=== PATIENT | female | born 1935 | race Caucasian/White ===

== ENCOUNTER 2019-07-20 17:30 | Emergency (ER) | payer MEDICARE, OTHER ==
[2019-07-20 17:46] VITALS: BP 170/96; PULSE 79
[2019-07-20] MEDS ORDERED: Sodium Chloride 0.9% 10 ML Syringe FLUSH PRN ×2 (19:42→19:56)
--- NOTE | 2019-07-20 19:42 | EDM.PDOC ---
ED HPI GENERAL MEDICAL PROBLEM - General Chief Complaint: Lower Extremity Injury/Pain Stated Complaint: R LEG POSS BLOOD CLOT Time Seen by Provider: 07/20/19 18:46 Source of Information: Reports: Patient History Limitations: Reports: No Limitations - History of Present Illness INITIAL COMMENTS - FREE TEXT/NARRATIVE: The patient presents with right leg pain. She was seen over at the clinic and she had labs done and her D-dimer was elevated. She was told to come over and have an US done. She has a tender area with a lump to the right posterior, proximal thigh. She was on a long car ride last Friday. She has no history of DVT or PE. She did have some chest pain at one time. She has no fever, chills , cough, congestion, runny nose, abdominal pain, nausea or vomiting. Onset: Gradual Duration: Day(s): Location: Reports: Lower Extremity, Right Quality: Reports: Ache Severity: Mild Improves with: Reports: None Worsens with: Reports: None Associated Symptoms: Reports: Chest Pain. Denies: Cough, Fever/Chills, Headaches, Nausea/Vomiting, Shortness of Breath Right Upper Thigh Pain Score (Numeric/FACES): 6 - Related Data Allergies Allergy/AdvReac Type Severity Reaction Status Date / Time codeine Allergy Severe Airway Verified 07/20/19 17:46 Tightness morphine Allergy Intermediate Hives Verified 07/20/19 17:46 ranitidine AdvReac Tachycardia Verified 07/20/19 17:46 Home Meds: Home Meds Aspirin 81 mg PO BID 11/11/15 [History] Calcium Carbonate [Calcium] 1,200 mg PO DAILY 07/20/19 [History] Cyanocobalamin (Vitamin B-12) [B-12] 1,000 mcg PO ASDIRECTED 07/20/19 [History] Losartan [Cozaar] 100 mg PO DAILY 07/20/19 [History] Magnesium 250 mg PO DAILY 07/20/19 [History] Pantoprazole [ProTONIX] 40 mg PO DAILY 07/20/19 [History] Potassium 99 mg PO DAILY 07/20/19 [History] Rosuvastatin [Crestor] 2.5 mg PO ASDIRECTED 07/20/19 [History] Ubidecarenone [Coenzyme Q10] 100 mg PO BID 07/20/19 [History] hydroCHLOROthiazide [Hydrochlorothiazide] 12.5 mg PO DAILY 07/20/19 [History] rOPINIRole [Requip] 1 mg PO QPM 07/20/19 [History] Past Medical History Respiratory History: Reports: Bronchitis, Recurrent, Pneumonia, Recurrent Musculoskeletal History: Reports: Arthritis, Back Pain, Chronic Psychiatric History: Reports: Anxiety Oncologic (Cancer) History: Reports: Breast Other Oncologic History: right mastectomy 5 yrs ago - Infectious Disease History Infectious Disease History: Reports: Measles - Past Surgical History Female Surgical History: Reports: Hysterectomy Musculoskeletal Surgical History: Reports: Arthroscopic Knee, Knee Replacement Social & Family History - Tobacco Use Smoking Status *Q: Never Smoker - Recreational Drug Use Recreational Drug Use: No - Living Situation & Occupation Living situation: Reports: , with Spouse Occupation: Retired Review of Systems - Review of Systems Review Of Systems: See Below Constitutional: Reports: No Symptoms Eyes: Reports: No Symptoms Ears: Reports: No Symptoms Nose: Reports: No Symptoms Mouth/Throat: Reports: No Symptoms Respiratory: Reports: No Symptoms Cardiovascular: Reports: Chest Pain GI/Abdominal: Reports: No Symptoms Genitourinary: Reports: No Symptoms Musculoskeletal: Reports: Other (Right leg pain) ED EXAM, GENERAL - Physical Exam Exam: See Below Exam Limited By: No Limitations General Appearance: Alert, No Apparent Distress Ears: Normal External Exam Nose: Normal Inspection Head: Atraumatic, Normocephalic Neck: Normal Inspection Respiratory/Chest: No Respiratory Distress, Lungs Clear, Normal Breath Sounds Cardiovascular: Regular Rate, Rhythm, No Edema, No Murmur GI/Abdominal: Soft, Non-Tender, No Organomegaly, No Mass Back Exam: Normal Inspection Extremities: Normal Inspection Course - Vital Signs Last Recorded V/S: Last Vital Signs Temp 98.1 F 07/20/19 17:43 Pulse 79 07/20/19 17:43 Resp 16 07/20/19 17:43 BP 170/96 H 07/20/19 17:43 Pulse Ox 98 07/20/19 17:43 - Orders/Labs/Meds Orders: Active Orders 24 hr Category Date Time Status Peripheral IV Care [RC] . DIRECTED Care 07/20/19 19:42 Inactive Ang Chest [CT] Stat Exams 07/20/19 19:42 Stop Req VL Duplex Lwr Ext Veins Ltd Rt [US] Stat Exams 07/20/19 18:53 Taken Sodium Chloride 0.9% [Normal Saline] 100 ml Med 07/20/19 20:00 Active IV ASDIRECTED Sodium Chloride 0.9% [Saline Flush] Med 07/20/19 19:56 Active 10 ml FLUSH ONETIME PRN Medication Orders Sodium Chloride (Normal Saline) 100 mls @ 80 mls/hr IV ASDIRECTED SHAN Sodium Chloride (Saline Flush) 10 ml FLUSH ONETIME PRN PRN Reason: KEEP VEIN OPEN Meds: Medications Generic Name Dose Route Start Last Admin Trade Name Freq PRN Reason Stop Dose Admin Sodium Chloride 100 mls @ 80 mls/hr 07/20/19 20:00 Normal Saline IV ASDIRECTED SHAN Sodium Chloride 10 ml 07/20/19 19:56 Saline Flush FLUSH ONETIME PRN KEEP VEIN OPEN Discontinued Medications Generic Name Dose Route Start Last Admin Trade Name Freq PRN Reason Stop Dose Admin Iopamidol 100 ml 07/20/19 19:56 [id number] (76%) IVPUSH 07/20/19 19:57 ONETIME ONE Sodium Chloride 10 ml 07/20/19 19:42 Saline Flush FLUSH ASDIRECTED PRN Keep Vein Open - Re-Assessments/Exams Free Text/Narrative Re-Assessment/Exam: 07/20/19 20:49 The US did show a superficial thrombophlebitis. I will keep her on the aspirin and have her wear compression stockings. She just had an MRI with contrast today. That may be to much contrast for her kidneys. I have put in an order for Chest angio for Friday. I will have her return if she is worse. Departure - Departure Time of Disposition: 20:50 Disposition: Home, Self-Care 01 Condition: Good Clinical Impression: Superficial thrombophlebitis of right leg - Discharge Information *PRESCRIPTION DRUG MONITORING PROGRAM REVIEWED*: No *COPY OF PRESCRIPTION DRUG MONITORING REPORT IN PATIENT TIBURCIO: No Referrals: Radha Alva NEW AUTOS DELIVERY DRIVER [Primary Care Provider] - 1 Week Forms: ED Department Discharge Additional Instructions: Keep taking your medication as prescribed including your daily aspirin. Wear compression stockings on both legs for at least a week. I have put an order in for a CT of your chest. Someone from our radiology department will call you with a time. Please return if you are worse. - My Orders Last 24 Hours: My Active Orders 07/20/19 18:53 VL Duplex Lwr Ext Veins Ltd Rt [US] Stat 07/20/19 19:42 Peripheral IV Care [RC] . DIRECTED Ang Chest [CT] Stat 07/20/19 19:56 Sodium Chloride 0.9% [Saline Flush] 10 ml FLUSH ONETIME PRN 07/20/19 20:00 Sodium Chloride 0.9% [Normal Saline] 100 ml IV ASDIRECTED - Assessment/Plan Last 24 Hours: My Active Orders 07/20/19 18:53 VL Duplex Lwr Ext Veins Ltd Rt [US] Stat 07/20/19 19:42 Peripheral IV Care [RC] . DIRECTED Ang Chest [CT] Stat 07/20/19 19:56 Sodium Chloride 0.9% [Saline Flush] 10 ml FLUSH ONETIME PRN 07/20/19 20:00 Sodium Chloride 0.9% [Normal Saline] 100 ml IV ASDIRECTED
[2019-07-20] MEDS ORDERED: Iopamidol 755 Mg/ML 100 ML Bottle IVPUSH ONE (19:56)
[2019-07-20] MEDS ORDERED: Sodium Chloride 0.9% 100 ML IV SCH (20:00)
--- NOTE | 2019-07-20 21:09 | US ---
Right lower extremity deep venous ultrasound: Duplex and color flow imaging was obtained of the right common femoral, greater saphenous, superficial femoral, popliteal, posterior tibial peroneal veins. Left common femoral vein was also evaluated. Findings: Small superficial vein within the posterior right thigh shows evidence of thrombus compatible with superficial thrombophlebitis. Normal phasic flow, augmentation and compression is seen within the deep veins. Impression: 1. No evidence of deep venous thrombosis within the right lower extremity or within the left common femoral vein. 2. Superficial varicosity within the posterior right thigh shows thrombus compatible with superficial thrombophlebitis. Diagnostic code #3
== END 2019-07-20 21:07 | disposition home or self-care (01) ==
LOC: JD.ED 17:30
DX: I80.01 Phlebitis and thrombophlebitis of superficial vessels of right lower extremity (principal); F41.9 Anxiety disorder, unspecified; Z88.5 Allergy status to narcotic agent; Z88.8 Allergy status to other drugs, medicaments and biological substances; Z79.82 Long term (current) use of aspirin; Z79.899 Other long term (current) drug therapy; Z85.3 Personal history of malignant neoplasm of breast
CPT/HCPCS: 93971-26-RT; 93971-RT; 99283; 99284-25

== ENCOUNTER 2019-10-17 00:21 | Emergency (ER) | payer MEDICARE, OTHER ==
[2019-10-17 00:34] VITALS: BP 168/92; PULSE 74
--- NOTE | 2019-10-17 01:11 | EDM.PDOC ---
ED HPI GENERAL MEDICAL PROBLEM - General Chief Complaint: General Stated Complaint: UTI Time Seen by Provider: 10/17/19 01:11 - History of Present Illness INITIAL COMMENTS - FREE TEXT/NARRATIVE: 84-year-old female presents emergency room with several symptoms. Patient is nauseated shaky and just doesn't feel good. She thought it was due to the Bactrim she was taking and stopped couple days ago. She took 13 and 14 for a bladder infection. She is no longer having bladder symptoms. No she's having some stomach upset and some shakiness. Denies fevers or chills she has little bit of cough but not too bad. Denies chest pressure. She also has leg cramps but this is an ongoing problem. Her symptoms started about 7 or 8 hours ago Generalized Pain Score (Numeric/FACES): 8 - Related Data Allergies Allergy/AdvReac Type Severity Reaction Status Date / Time codeine Allergy Severe Airway Verified 10/17/19 00:35 Tightness morphine Allergy Intermediate Hives Verified 10/17/19 00:35 ranitidine AdvReac Tachycardia Verified 10/17/19 00:35 Home Meds: Home Meds Aspirin 81 mg PO BID 11/11/15 [History] Calcium Carbonate [Calcium] 1,200 mg PO DAILY 07/20/19 [History] Cyanocobalamin (Vitamin B-12) [B-12] 1,000 mcg PO ASDIRECTED 07/20/19 [History] Losartan [Cozaar] 100 mg PO DAILY 07/20/19 [History] Magnesium 250 mg PO DAILY 07/20/19 [History] Pantoprazole [ProTONIX] 40 mg PO DAILY 07/20/19 [History] Potassium 99 mg PO DAILY 07/20/19 [History] Rosuvastatin [Crestor] 2.5 mg PO ASDIRECTED 07/20/19 [History] Ubidecarenone [Coenzyme Q10] 100 mg PO BID 07/20/19 [History] hydroCHLOROthiazide [Hydrochlorothiazide] 12.5 mg PO DAILY 07/20/19 [History] rOPINIRole [Requip] 1 mg PO QPM 07/20/19 [History] LORazepam [Ativan] 0.25 mg PO Q8H PRN 10/17/19 [History] LORazepam [Ativan] 0.5 mg PO Q8H PRN #6 tablet 10/17/19 [Rx] Potassium Chloride [Klor-Con M20] 20 meq PO Q12H #6 tab.er 10/17/19 [Rx] traMADol [Ultram] 100 mg PO TID 10/17/19 [History] Past Medical History Cardiovascular History: Reports: High Cholesterol, Hypertension Respiratory History: Reports: Bronchitis, Recurrent, Pneumonia, Recurrent Gastrointestinal History: Reports: [employer] History: Reports: Musculoskeletal History: Reports: Arthritis, Back Pain, Chronic Psychiatric History: Reports: Anxiety Oncologic (Cancer) History: Reports: Breast Other Oncologic History: right mastectomy 5 yrs ago - Infectious Disease History Infectious Disease History: Reports: Measles - Past Surgical History Female Surgical History: Reports: Hysterectomy Musculoskeletal Surgical History: Reports: Arthroscopic Knee, Knee Replacement Social & Family History - Tobacco Use Smoking Status *Q: Never Smoker Second Hand Smoke Exposure: No - Caffeine Use Caffeine Use: Reports: Coffee - Recreational Drug Use Recreational Drug Use: No - Living Situation & Occupation Living situation: Reports: , with Spouse Occupation: Retired ED ROS GENERAL - Review of Systems Review Of Systems: See Below Constitutional: Reports: No Symptoms HEENT: Reports: No Symptoms Respiratory: Reports: No Symptoms Cardiovascular: Reports: No Symptoms GI/Abdominal: Reports: Nausea. Denies: Abdominal Pain, Constipation, Diarrhea : Denies: Dysuria, Flank Pain, Frequency, Hematuria Musculoskeletal: Reports: Other (Leg cramps) Skin: Reports: No Symptoms ED EXAM, GENERAL - Physical Exam Exam: See Below Exam Limited By: No Limitations General Appearance: Alert, No Apparent Distress Head: Atraumatic, Normocephalic Neck: Normal Inspection, Supple, Non-Tender, Full Range of Motion Respiratory/Chest: No Respiratory Distress, Lungs Clear, Normal Breath Sounds Cardiovascular: Regular Rate, Rhythm, No Edema, No Murmur GI/Abdominal: Normal Bowel Sounds, Soft, Non-Tender Course - Vital Signs Last Recorded V/S: Last Vital Signs Temp 35.7 C 10/17/19 00:34 Pulse 74 10/17/19 00:34 Resp 20 10/17/19 00:34 BP 168/92 H 10/17/19 00:34 Pulse Ox 98 10/17/19 00:34 - Orders/Labs/Meds Labs: Laboratory Tests 10/17/19 10/17/19 Range/Units 01:30 01:30 WBC 8.49 (3.98-10.04) K/mm3 RBC 4.25 (3.98-5.22) M/mm3 Hgb 13.2 (11.2-15.7) gm/dl Hct 38.8 (34.1-44.9) % MCV 91.3 (79.4-94.8) fl MCH 31.1 (25.6-32.2) pg MCHC 34.0 (32.2-35.5) g/dl RDW Std Deviation 39.2 (36.4-46.3) fL Plt Count 212 (182-369) K/mm3 MPV 9.0 L (9.4-12.3) fl Neutrophils % (Manual) 51 (40-60) % Band Neutrophils % 0 (0-10) % Lymphocytes % (Manual) 39 (20-40) % Atypical Lymphs % 0 % Monocytes % (Manual) 9 (2-10) % Eosinophils % (Manual) 1 (0.7-5.8) % Basophils % (Manual) 0 L (0.1-1.2) Platelet Estimate Adequate Plt Morphology Comment Normal RBC Morph Comment Normal Sodium 132 L (136-145) mEq/L Potassium 3.9 (3.5-5.1) mEq/L Chloride 99 (98-107) mEq/L Carbon Dioxide 27 (21-32) mEq/L Anion Gap 9.9 (5-15) BUN 30 H (7-18) mg/dL Creatinine 1.0 (0.55-1.02) mg/dL Est Cr Clr Drug Dosing TNP Estimated GFR (MDRD) 53 (>60) mL/min BUN/Creatinine Ratio 30.0 H (14-18) Glucose 111 (83-115) mg/dL Calcium 9.0 (8.5-10.1) mg/dL Magnesium 1.9 (1.8-2.4) mg/dl Total Bilirubin 0.3 (0.2-1.0) mg/dL AST 32 (15-37) U/L ALT 39 (14-59) U/L Alkaline Phosphatase 122 H (46-116) U/L Troponin I < 0.017 (0.00-0.056) ng/mL Total Protein 6.4 (6.4-8.2) g/dl Albumin 3.7 (3.4-5.0) g/dl Globulin 2.7 gm/dL Albumin/Globulin Ratio 1.4 (1-2) Meds: Medications Discontinued Medications Generic Name Dose Route Start Last Admin Trade Name Jonathan PRN Reason Stop Dose Admin Lorazepam 0.5 mg 10/17/19 01:58 10/17/19 02:36 Ativan PO 10/17/19 01:59 0.5 mg ONETIME ONE Administration Ondansetron HCl 4 mg 10/17/19 01:18 10/17/19 01:34 Zofran Odt PO 10/17/19 01:19 4 mg ONETIME ONE Administration Potassium Chloride 40 meq 10/17/19 03:56 Klor-Con M20 PO 10/17/19 03:57 ONETIME ONE - Re-Assessments/Exams Free Text/Narrative Re-Assessment/Exam: 10/17/19 01:25 Think a lot of her problems are anxiety however she declines a dose of Ativan at this time. We will check an EKG and some labs make sure electrolytes are okay not contributing to her leg tightness but it sounds like she's had a long history of restless leg. 10/17/19 04:00 He did agree to some Ativan is doing much better with this. Reviewed her labs and her potassium is low and her magnesium was borderline low we'll give her some oral potassium and recommend she start Mag-Ox 40 mg a day. Departure - Departure Time of Disposition: 04:01 Disposition: Home, Self-Care 01 Clinical Impression: Hypokalemia, Anxiety, Restless leg syndrome - Discharge Information Prescriptions: LORazepam [Ativan] 0.5 mg PO Q8H PRN #6 tablet PRN Reason: Anxiety Potassium Chloride [Klor-Con M20] 20 meq PO Q12H #6 tab.er Referrals: Radha Alva SENIOR SHIPPING CLERK [Primary Care Provider] - Forms: ED Department Discharge Additional Instructions: Return to the emergency room with any questions problems worsening symptoms. You 've been given some Ativan, use only as needed for anxiety. Your potassium was found to be low take the potassium as directed. If you're not already on a magnesium supplement start Mag-Ox 400 mg 1 daily Follow-up in the clinic on Friday or Friday Sepsis Event Note - Evaluation Sepsis Screening Result: No Definite Risk - Focused Exam Vital Signs: Vital Signs Temp Pulse Resp BP Pulse Ox 10/17/19 00:34 35.7 C 74 20 168/92 H 98 Date Exam was Performed: 10/17/19 Time Exam was Performed: 04:00
[2019-10-17] MEDS ORDERED: Ondansetron 4 MG Tab.DIS PO ONE (01:18)
[2019-10-17] MEDS ORDERED: LORazepam 0.5 MG Tab PO ONE (01:58)
[2019-10-17] MEDS ORDERED: Potassium Chloride 20 MEQ Tab.ER PO ONE (03:56)
== END 2019-10-17 04:29 | disposition home or self-care (01) ==
LOC: JD.ED 00:21
DX: E87.6 Hypokalemia (principal); F41.9 Anxiety disorder, unspecified; G25.81 Restless legs syndrome; I10 Essential (primary) hypertension; E78.00 Pure hypercholesterolemia, unspecified; K21.9 Gastro-esophageal reflux disease without esophagitis; M19.90 Unspecified osteoarthritis, unspecified site; Z79.899 Other long term (current) drug therapy; Z88.8 Allergy status to other drugs, medicaments and biological substances; Z88.5 Allergy status to narcotic agent; Z79.82 Long term (current) use of aspirin
CPT/HCPCS: 36415; 80053; 83735; 84484; 85007; 85027; 99283; A9270

== ENCOUNTER 2020-05-27 09:48 | Emergency (ER) | payer MEDICARE, OTHER ==
[2020-05-27 10:26] VITALS: BP 183/95; PULSE 81
--- NOTE | 2020-05-27 11:54 | EDM.PDOC ---
ED HPI GENERAL MEDICAL PROBLEM - General Chief Complaint: General Stated Complaint: RESTLESSNESS AND BODY ACHES Time Seen by Provider: 05/27/20 11:04 Source of Information: Reports: Patient History Limitations: Reports: No Limitations - History of Present Illness INITIAL COMMENTS - FREE TEXT/NARRATIVE: Patient is an 85-year-old female who presents to the emergency department with complaints of generalized joint pain, back pain, and right shoulder pain. She states this has been chronic for her for "many years ". She has been taking tramadol 100 mg 3 times daily as well as Tylenol 1000 mg twice daily. She also takes Requip 1 mg for restless legs at bedtime. She states that she hurt her right shoulder about 2 weeks ago. Since that time she feels that her generalized arthritic pain has gotten worse. She also has not been sleeping well since she injured her shoulder. She complains of low back pain radiating down her bilateral legs which has been chronic for her, however she states that it is worse. She had an MRI completed on Friday of her right shoulder. She has not received results of this thus far. She denies any recent injuries to her back. She denies any fever or chills. Generalized Pain Score (Numeric/FACES): 10 - Related Data Allergies Allergy/AdvReac Type Severity Reaction Status Date / Time codeine Allergy Severe Airway Verified 05/28/20 01:22 Tightness morphine Allergy Severe Hives Verified 05/28/20 01:22 ranitidine AdvReac Severe Tachycardia Verified 05/28/20 01:22 Home Meds: Home Meds Aspirin 81 mg PO BID 11/11/15 [History] Calcium Carbonate [Calcium] 1,200 mg PO DAILY 07/20/19 [History] Cyanocobalamin (Vitamin B-12) [B-12] 1,000 mcg PO ASDIRECTED 07/20/19 [History] Losartan [Cozaar] 100 mg PO DAILY 07/20/19 [History] Magnesium 250 mg PO DAILY 07/20/19 [History] Pantoprazole [ProTONIX] 40 mg PO DAILY 07/20/19 [History] Potassium 99 mg PO DAILY 07/20/19 [History] Rosuvastatin [Crestor] 2.5 mg PO ASDIRECTED 07/20/19 [History] Ubidecarenone [Coenzyme Q10] 100 mg PO BID 07/20/19 [History] hydroCHLOROthiazide [Hydrochlorothiazide] 12.5 mg PO DAILY 07/20/19 [History] rOPINIRole [Requip] 1 mg PO QPM 07/20/19 [History] LORazepam [Ativan] 0.5 mg PO Q8H PRN #6 tablet 10/17/19 [Rx] Potassium Chloride [Klor-Con M20] 20 meq PO Q12H #6 tab.er 10/17/19 [Rx] traMADol [Ultram] 100 mg PO TID 10/17/19 [History] predniSONE [Prednisone] 30 mg PO DAILY 5 Days #15 tablet 05/27/20 [Rx] Past Medical History Cardiovascular History: Reports: High Cholesterol, Hypertension Respiratory History: Reports: Bronchitis, Recurrent, Pneumonia, Recurrent Gastrointestinal History: Reports: [employer] History: Reports: Musculoskeletal History: Reports: Arthritis, Back Pain, Chronic Psychiatric History: Reports: Anxiety Oncologic (Cancer) History: Reports: Breast Other Oncologic History: right mastectomy 5 yrs ago - Infectious Disease History Infectious Disease History: Reports: Measles - Past Surgical History Female Surgical History: Reports: Hysterectomy Musculoskeletal Surgical History: Reports: Arthroscopic Knee, Knee Replacement Social & Family History - Tobacco Use Smoking Status *Q: Never Smoker Second Hand Smoke Exposure: No - Caffeine Use Caffeine Use: Reports: Coffee - Recreational Drug Use Recreational Drug Use: No - Living Situation & Occupation Living situation: Reports: , with Spouse Occupation: Retired ED ROS GENERAL - Review of Systems Review Of Systems: See Below Constitutional: Reports: No Symptoms HEENT: Reports: No Symptoms Respiratory: Reports: No Symptoms Cardiovascular: Reports: No Symptoms Endocrine: Reports: No Symptoms GI/Abdominal: Reports: No Symptoms : Reports: No Symptoms Musculoskeletal: Reports: Back Pain, Other (Right shoulder pain) Skin: Reports: No Symptoms Neurological: Reports: No Symptoms Psychiatric: Reports: No Symptoms Hematologic/Lymphatic: Reports: No Symptoms Immunologic: Reports: No Symptoms ED EXAM, GENERAL - Physical Exam Exam: See Below General Appearance: Alert, WD/WN, No Apparent Distress Respiratory/Chest: No Respiratory Distress, Lungs Clear, Normal Breath Sounds, No Accessory Muscle Use, Chest Non-Tender Cardiovascular: Normal Peripheral Pulses, Regular Rate, Rhythm, No Edema, No Gallop, No JVD, No Murmur, No Rub Back Exam: Normal Inspection, Paraspinal Tenderness (Bilateral low back) Extremities: Normal Inspection, Limited Range of Motion (To right shoulder due to pain.). No: Joint Swelling Neurological: Alert, Oriented, CN II-XII Intact, Normal Cognition, Normal Gait, Normal Reflexes, No Motor/Sensory Deficits Psychiatric: Normal Affect, Normal Mood Skin Exam: Warm, Dry, Intact, Normal Color, No Rash Course - Vital Signs Last Recorded V/S: Last Vital Signs Temp 97.1 F 05/27/20 10:20 Pulse 81 05/27/20 10:20 Resp 20 05/27/20 10:20 BP 183/95 H 05/27/20 10:20 Pulse Ox 97 05/27/20 10:20 - Re-Assessments/Exams Free Text/Narrative Re-Assessment/Exam: 05/27/20 11:52 Patient is an 85-year-old female who presents to the emergency department with complaints of worsening chronic pain. She is already taking tramadol 100 mg 3 times daily as well as Tylenol twice daily. I am hesitant to start her any narcotics due to her age and risk of confusion and her falling. Review of her shoulder MRI shows tendinitis, bursitis, and a possible labral tear. We will try a short course of prednisone to reduce inflammation in her shoulder and low back. Discussed that is imperative that she follow-up with her primary care provider next week for ongoing management and to come up with a long-term plan for pain management. We will do prednisone 30 mg daily for 5 days. Discharge instructions as documented. 06/02/20 12:59 Departure - Departure Time of Disposition: 11:53 Disposition: Home, Self-Care 01 Condition: Good Clinical Impression: Chronic back pain Qualifiers: Back pain location: low back pain Back pain laterality: bilateral Sciatica presence: with sciatica Sciatica laterality: bilateral sciatica Qualified Code(s): M54.42 - Lumbago with sciatica, left side Shoulder pain, right Qualifiers: Chronicity: acute Qualified Code(s): M25.511 - Pain in right shoulder - Discharge Information *PRESCRIPTION DRUG MONITORING PROGRAM REVIEWED*: No *COPY OF PRESCRIPTION DRUG MONITORING REPORT IN PATIENT TIBURCIO: No Prescriptions: predniSONE [Prednisone] 30 mg PO DAILY 5 Days #15 tablet Instructions: Shoulder Pain, Chronic Back Pain, [id number] Referrals: Radha Alva PHARMACY TECHNICIAN INPATIENT [Primary Care Provider] - Forms: ED Department Discharge Additional Instructions: You were seen in the emergency department today for worsening of your chronic back pain, leg pain, and right shoulder pain. As we discussed, I do not feel it would be beneficial for you to start an additional pain medication in addition to your tramadol and Tylenol. I have ordered a short course of prednisone which is an anti-inflammatory to help decrease the inflammation in your back and shoulder. Take this once daily for 5 days. Recommend that you follow-up with your primary care provider next week for ongoing and long-term management of your chronic pain. Return to the ER as needed. Sepsis Event Note (ED) - Evaluation Sepsis Screening Result: No Definite Risk
== END 2020-05-27 12:15 | disposition home or self-care (01) ==
LOC: JD.ED 09:48
DX: M54.41 Lumbago with sciatica, right side (principal); M54.42 Lumbago with sciatica, left side; M25.511 Pain in right shoulder; I10 Essential (primary) hypertension; K21.9 Gastro-esophageal reflux disease without esophagitis; M19.90 Unspecified osteoarthritis, unspecified site; Z90.710 Acquired absence of both cervix and uterus; Z79.899 Other long term (current) drug therapy; Z79.82 Long term (current) use of aspirin; Z88.5 Allergy status to narcotic agent; Z88.8 Allergy status to other drugs, medicaments and biological substances
CPT/HCPCS: 99282; 99283

== ENCOUNTER 2020-05-28 00:45 | Emergency (ER) | payer MEDICARE, OTHER ==
[2020-05-28 01:21] VITALS: BP 176/94; PULSE 80
[2020-05-28] MEDS ORDERED: Cyclobenzaprine 10 MG Tab PO ONE (02:06)
--- NOTE | 2020-05-28 02:12 | EDM.PDOC ---
ED HPI GENERAL MEDICAL PROBLEM - General Chief Complaint: Cardiovascular Problem Stated Complaint: HIGH BLOOD PRESSURE Time Seen by Provider: 05/28/20 01:53 Source of Information: Reports: Patient History Limitations: Reports: No Limitations - History of Present Illness INITIAL COMMENTS - FREE TEXT/NARRATIVE: Is an 85-year-old female. Today she was checking her blood pressure multiple times and noted that the diastolic pressure was 100 or above. She says normally her blood pressures are 180 over 70s. But today it got up to 200/100. She continued to check the blood pressures they did not seem to come down so she comes to the ER for evaluation. As she laid in the room the blood pressure came down to 155/77. When I go in the room of course the blood pressure goes back up slightly. She says that she has a problem with restless leg and everything they give her has not helped but she feels like her legs are cramping up at nighttime and she cannot get any sleep and she is restless and moves around all night. They have not given her a muscle relaxer to help. All concerned about her blood pressure and so she checks it multiple times during the day instead of leaving it alone. She does have chronic low back pain for which she is seeing an sap specialist this coming week at [facility]. Bilateral Leg Pain Score (Numeric/FACES): 8 - Related Data Allergies Allergy/AdvReac Type Severity Reaction Status Date / Time codeine Allergy Severe Airway Verified 05/28/20 01:22 Tightness morphine Allergy Severe Hives Verified 05/28/20 01:22 ranitidine AdvReac Severe Tachycardia Verified 05/28/20 01:22 Home Meds: Home Meds Aspirin 81 mg PO BID 11/11/15 [History] Calcium Carbonate [Calcium] 1,200 mg PO DAILY 07/20/19 [History] Cyanocobalamin (Vitamin B-12) [B-12] 1,000 mcg PO ASDIRECTED 07/20/19 [History] Losartan [Cozaar] 100 mg PO DAILY 07/20/19 [History] Magnesium 250 mg PO DAILY 07/20/19 [History] Pantoprazole [ProTONIX] 40 mg PO DAILY 07/20/19 [History] Potassium 99 mg PO DAILY 07/20/19 [History] Rosuvastatin [Crestor] 2.5 mg PO ASDIRECTED 07/20/19 [History] Ubidecarenone [Coenzyme Q10] 100 mg PO BID 07/20/19 [History] hydroCHLOROthiazide [Hydrochlorothiazide] 12.5 mg PO DAILY 07/20/19 [History] rOPINIRole [Requip] 1 mg PO QPM 07/20/19 [History] LORazepam [Ativan] 0.5 mg PO Q8H PRN #6 tablet 10/17/19 [Rx] Potassium Chloride [Klor-Con M20] 20 meq PO Q12H #6 tab.er 10/17/19 [Rx] traMADol [Ultram] 100 mg PO TID 10/17/19 [History] predniSONE [Prednisone] 30 mg PO DAILY 5 Days #15 tablet 05/27/20 [Rx] Past Medical History Cardiovascular History: Reports: High Cholesterol, Hypertension Respiratory History: Reports: Bronchitis, Recurrent, Pneumonia, Recurrent Gastrointestinal History: Reports: GERD 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: Musculoskeletal History: Reports: Arthritis, Back Pain, Chronic Psychiatric History: Reports: Anxiety Oncologic (Cancer) History: Reports: Breast Other Oncologic History: right mastectomy 5 yrs ago - Infectious Disease History Infectious Disease History: Reports: Measles - Past Surgical History Female Surgical History: Reports: Hysterectomy Musculoskeletal Surgical History: Reports: Arthroscopic Knee, Knee Replacement Social & Family History - Family History Family Medical History: Noncontributory - Tobacco Use Smoking Status *Q: Never Smoker Second Hand Smoke Exposure: No - Caffeine Use Caffeine Use: Reports: Coffee - Recreational Drug Use Recreational Drug Use: No - Living Situation & Occupation Living situation: Reports: , with Spouse Occupation: Retired ED ROS GENERAL - Review of Systems Review Of Systems: See Below Constitutional: Denies: Fever, Chills HEENT: Reports: No Symptoms Respiratory: Denies: Shortness of Breath, Cough Cardiovascular: Reports: No Symptoms Endocrine: Reports: No Symptoms GI/Abdominal: Reports: No Symptoms : Reports: No Symptoms Musculoskeletal: Reports: Back Pain Skin: Reports: No Symptoms Neurological: Reports: No Symptoms Psychiatric: Reports: No Symptoms ED EXAM, GENERAL - Physical Exam Exam: See Below Exam Limited By: No Limitations General Appearance: Alert, WD/WN, No Apparent Distress Eye Exam: Bilateral Eye: Normal Inspection Ears: Normal External Exam Throat/Mouth: Normal Voice, No Airway Compromise Head: Normocephalic Neck: Supple Respiratory/Chest: No Respiratory Distress, Lungs Clear, Normal Breath Sounds Cardiovascular: Regular Rate, Rhythm, No Murmur Back Exam: Other (Complains of lower back tenderness and pain that seems to get worse if she stays in one place for a period of time such as sitting.) Extremities: Normal Inspection, Normal Range of Motion Neurological: Alert, Oriented Psychiatric: Anxious Skin Exam: Warm, Dry Course - Vital Signs Last Recorded V/S: Last Vital Signs Temp 96.8 F L 05/28/20 01:15 Pulse 80 05/28/20 01:15 Resp 20 05/28/20 01:15 BP 176/94 H 05/28/20 01:15 Pulse Ox 97 05/28/20 01:15 - Orders/Labs/Meds Orders: Active Orders 24 hr Category Date Time Status Cyclobenzaprine [Flexeril] Med 05/28/20 02:06 Once 10 mg PO ONETIME ONE - Re-Assessments/Exams Free Text/Narrative Re-Assessment/Exam: 05/28/20 02:10 Sent with the patient and spoke to her about taking her blood pressure too many times during the day will keep it elevated. I also suggest that she follow-up with her doctor for additional medications for her cramping in her legs and her restlessness. I will provide a Flexeril 1 time tonight to see if that helps and then she can go to see her doctor for an additional muscle relaxer if that is what is needed. Departure - Departure Time of Disposition: 02:11 Disposition: Home, Self-Care 01 Condition: Fair Clinical Impression: Elevated blood pressure reading, Restless legs syndrome Chronic low back pain Qualifiers: Back pain laterality: bilateral Sciatica presence: without sciatica Qualified Code(s): M54.5 - Low back pain; G89.29 - Other chronic pain Referrals: Radha Alva, INTERPRETATIVE DANCER [Primary Care Provider] - Additional Instructions: I gave you a single 10 mg Flexeril in the ER to see if it helps your legs when you get home, please do not recheck your blood pressure multiple times since it will tend to drive it up and keep it up, the next time you take a blood pressure is tomorrow some time but not tonight, follow-up with your family doctor for recheck, return to the ER if needed Sepsis Event Note (ED) - Evaluation Sepsis Screening Result: No Definite Risk - Focused Exam Vital Signs: Vital Signs Temp Pulse Resp BP Pulse Ox 05/28/20 01:15 96.8 F L 80 20 176/94 H 97 - My Orders Last 24 Hours: My Active Orders 05/28/20 02:06 Cyclobenzaprine [Flexeril] 10 mg PO ONETIME ONE - Assessment/Plan Last 24 Hours: My Active Orders 05/28/20 02:06 Cyclobenzaprine [Flexeril] 10 mg PO ONETIME ONE
== END 2020-05-28 02:26 | disposition home or self-care (01) ==
LOC: JD.ED 00:45
DX: R03.0 Elevated blood-pressure reading, without diagnosis of hypertension (principal); G25.81 Restless legs syndrome; M54.5 Low back pain; G89.29 Other chronic pain; K21.9 Gastro-esophageal reflux disease without esophagitis; F41.9 Anxiety disorder, unspecified; E78.00 Pure hypercholesterolemia, unspecified; Z88.5 Allergy status to narcotic agent; Z79.82 Long term (current) use of aspirin; Z79.899 Other long term (current) drug therapy; Z90.710 Acquired absence of both cervix and uterus; Z98.890 Other specified postprocedural states
CPT/HCPCS: 99283; A9270

== ENCOUNTER 2020-12-07 00:06 | Emergency (ER) | payer MEDICARE, OTHER ==
[2020-12-07 00:26] VITALS: BP 191/92; PULSE 68
--- NOTE | 2020-12-07 00:59 | EDM.PDOC ---
ED HPI GENERAL MEDICAL PROBLEM - General Chief Complaint: Cardiovascular Problem Stated Complaint: BP UP AND DOWN Time Seen by Provider: 12/07/20 00:20 Source of Information: Reports: Patient, Family () History Limitations: Reports: No Limitations - History of Present Illness INITIAL COMMENTS - FREE TEXT/NARRATIVE: Mrs. Blanca is a pleasant 85-year-old woman who now presents to the ED with concern about elevated blood pressure. She states that she decided to check her blood pressure tonight, for no particular reason, finding it to be 170/200. She understood that that was not likely an accurate value. She states that she rechecked it had additional 8-10 times tonight, each time finding it to be elevated, therefore she decided to come to the ED to have it checked out. She denies feeling ill at all, specifically, denied having a headache, blurry vision, chest pain, or nausea. The patient states that she has not missed any of her scheduled blood pressure medications. Here in the ED, the patient's initial BP is found to be elevated at 191/92. She is otherwise hemodynamically stable, afebrile, saturating 98% on room air. Prior to tonight, the patient denies having a recent fever, chills, sore throat, ear pain, nasal or sinus congestion, cough, dyspnea, chest pain, palpitations, nausea, vomiting, constipation, diarrhea, abdominal pain, urinary symptoms, recent weight gain or weight loss, recent bloody bowel movements or black bowel movements, recent joint aches, headaches, or rashes. The patient's PCP is Radha Alva NP. Her New Aut[employer] Delivery Driver is Dr. Ricky Alcantara. She has an appointment to see him later today. She states that she already received an influenza vaccine this season. - Related Data Allergies Allergy/AdvReac Type Severity Reaction Status Date / Time codeine Allergy Severe Airway Verified 12/07/20 00:26 Tightness morphine Allergy Severe Hives, Verified 12/07/20 00:26 hypertension atorvastatin Allergy Other Verified 12/07/20 00:26 hydrocodone Allergy Other Verified 12/07/20 00:26 isosorbide Allergy Hypotension Verified 12/07/20 00:26 metoclopramide [From Reglan] Allergy Other Verified 12/07/20 00:26 ranitidine AdvReac Severe Tachycardia Verified 12/07/20 00:26 Home Meds: Home Meds Aspirin 81 mg PO BID 11/11/15 [History] Calcium Carbonate [Calcium] 1,200 mg PO DAILY 07/20/19 [History] Cyanocobalamin (Vitamin B-12) [B-12] 1,000 mcg PO ASDIRECTED 07/20/19 [History] Losartan [Cozaar] 100 mg PO DAILY 07/20/19 [History] Magnesium 250 mg PO DAILY 07/20/19 [History] Pantoprazole [ProTONIX] 40 mg PO DAILY 07/20/19 [History] Potassium 99 mg PO DAILY 07/20/19 [History] Rosuvastatin [Crestor] 2.5 mg PO ASDIRECTED 07/20/19 [History] Ubidecarenone [Coenzyme Q10] 100 mg PO BID 07/20/19 [History] hydroCHLOROthiazide [Hydrochlorothiazide] 12.5 mg PO DAILY 07/20/19 [History] rOPINIRole [Requip] 1 mg PO QPM 07/20/19 [History] LORazepam [Ativan] 0.5 mg PO Q8H PRN #6 tablet 10/17/19 [Rx] Potassium Chloride [Klor-Con M20] 20 meq PO Q12H #6 tab.er 10/17/19 [Rx] traMADol [Ultram] 100 mg PO TID 10/17/19 [History] predniSONE [Prednisone] 30 mg PO DAILY 5 Days #15 tablet 05/27/20 [Rx] Brimonidine [Alphagan P 0.15% Ophth Soln] 5 ml .XX 06/20/20 [History] Cholecalciferol (Vitamin D3) [Vitamin D3] 1,000 unit PO 06/20/20 [History] Fluticasone Propionate [Flonase] 16 gm NS 06/20/20 [History] Magnesium Oxide 250 mg PO 06/20/20 [History] Ondansetron [Zofran ODT] 4 mg PO 06/20/20 [History] Pyridoxine HCl (Vitamin B6) [Vitamin B-6] 100 mg PO 06/20/20 [History] hydroCHLOROthiazide [Hydrochlorothiazide] 12.5 mg PO 06/20/20 [History] rOPINIRole [Requip] 1 mg PO 06/20/20 [History] Past Medical History Cardiovascular History: Reports: High Cholesterol, Hypertension Respiratory History: Reports: COPD (PFT-proven, mild, untreated), Sleep Apnea (nightly CPAP 5) Gastrointestinal History: Reports: GERD Genitourinary History: Reports: Urinary Incontinence (stress incontinence) Musculoskeletal History: Reports: Osteoarthritis Neurological History: Reports: Other (See Below) (Restless leg syndrome) Psychiatric History: Reports: Anxiety Oncologic (Cancer) History: Reports: Breast (right, dx'd 2009, s/p mastectomy, CTx) - Infectious Disease History Infectious Disease History: Reports: Measles - Past Surgical History HEENT Surgical History: Reports: Cataract Surgery (bilateral), Tonsillectomy Cardiovascular Surgical History: Reports: Other (See Below) (Coronary angiogram Apr 2020 -> mild dz) GI Surgical History: Reports: Hernia, Abdominal (x 6) Female Surgical History: Reports: Hysterectomy (complete) Musculoskeletal Surgical History: Reports: Knee Replacement (bilateral) Oncologic Surgical History: Reports: Mastectomy (right) Social & Family History - Tobacco Use Tobacco Use Status *Q: Never Tobacco User - Caffeine Use Caffeine Use: Reports: Coffee - Alcohol Use Alcohol Use History: No - Recreational Drug Use Recreational Drug Use: No - Living Situation & Occupation Living situation: Reports: , with Spouse Occupation: Retired ED ROS GENERAL - Review of Systems Review Of Systems: Comprehensive ROS is negative, except as noted in HPI. ED EXAM, GENERAL - Physical Exam Exam: See Below Exam Limited By: No Limitations General Appearance: Alert, WD/WN, No Apparent Distress Eye Exam: Bilateral Eye: EOMI, Normal Inspection (s/p cataract surgery) Ears: Normal External Exam, Hearing Grossly Normal Nose: Normal Inspection Throat/Mouth: Normal Inspection, Normal Lips, Normal Voice, No Airway Compromise Head: Atraumatic, Normocephalic Neck: Normal Inspection, Full Range of Motion Respiratory/Chest: No Respiratory Distress, Lungs Clear, Normal Breath Sounds, No Accessory Muscle Use Cardiovascular: Normal Peripheral Pulses, Regular Rate, Rhythm, No Gallop, No JVD, No Murmur, No Rub Peripheral Pulses: 3+: Radial (L), Radial (R) GI/Abdominal: Normal Bowel Sounds, Soft, Non-Tender, No Organomegaly, No Distention, No Abnormal Bruit, No Mass Back Exam: Normal Inspection, Full Range of Motion, NT Extremities: Normal Inspection, Normal Range of Motion, Normal Capillary Refill Neurological: Alert, Oriented, Normal Cognition, No Motor/Sensory Deficits Psychiatric: Normal Affect Skin Exam: Warm, Dry, Intact, Normal Color, No Rash Course - Vital Signs Last Recorded V/S: Last Vital Signs Temp 36.6 C 12/07/20 00:23 Pulse 68 12/07/20 00:23 Resp 16 12/07/20 00:23 BP 191/92 H 12/07/20 00:23 Pulse Ox 98 12/07/20 00:23 - Re-Assessments/Exams Free Text/Narrative Re-Assessment/Exam: 12/07/20 00:54 As above, the patient checked her blood pressure tonight, for no particular reason, found it to be high, then rechecked it an additional 8-10 times, each time finding it to be higher than the last. Her initial BP here in the ED was 191/92, although it has since decreased on its own to 167/88. No associated symptoms such as headache, blurry vision, or nausea. Her physical exam is unremarkable. I discussed with the patient and her at length how to properly check blood pressure, and I believe that they are now reassured. Departure - Departure Time of Disposition: 00:55 Disposition: Home, Self-Care 01 Condition: Good Clinical Impression: Elevated blood pressure reading Instructions: Hypertension, Adult, [id number] Referrals: Radha Alva NP [Primary Care Provider] - Ricky Alcantara MD [Ordering Only Provider] - Forms: ED Department Discharge Additional Instructions: You were seen in the emergency room after checking her blood pressure at home, finding it to be high, then rechecking it several times. As discussed, control of hypertension is a long-term goal, not a short-term one. We do not try to micromanage her blood pressure. As discussed, current guidelines recommend that if you are concerned about your blood pressure, that you check it 2 or 3 times a week, for 2 to 3 weeks, but only under restful conditions = you are sitting quietly for at least 5, and preferably 15 minutes, the the arm that your blood pressure is being checked and is supported and at the level of your heart, that you are not in pain, you are not anxious, and you are not ill. Write the numbers down, then present them to your PCP when you follow-up. As discussed, you can check your blood pressure at different times of the day, but there is no purpose in repeating your blood pressure more than once a day. Continue to take your current blood pressure medications as prescribed. If any other problems, please do not hesitate to return to the ER. Sepsis Event Note (ED) - Evaluation Sepsis Screening Result: No Definite Risk - Focused Exam Vital Signs: Vital Signs Temp Pulse Resp BP Pulse Ox 12/07/20 00:23 36.6 C 68 16 191/92 H 98
== END 2020-12-07 01:07 | disposition home or self-care (01) ==
LOC: JD.ED 00:06
DX: I10 Essential (primary) hypertension (principal); E78.00 Pure hypercholesterolemia, unspecified; J44.9 Chronic obstructive pulmonary disease, unspecified; K21.9 Gastro-esophageal reflux disease without esophagitis; M19.90 Unspecified osteoarthritis, unspecified site; Z79.82 Long term (current) use of aspirin; Z79.899 Other long term (current) drug therapy; Z88.5 Allergy status to narcotic agent; Z88.8 Allergy status to other drugs, medicaments and biological substances
CPT/HCPCS: 99282; 99283

== ENCOUNTER 2021-02-10 10:55 | Emergency (ER) | payer MEDICARE, OTHER ==
[2021-02-10 11:06] VITALS: BP 148/90; PULSE 66
[2021-02-10] MEDS ORDERED: Benzonatate 100 MG Cap PO ONE (11:24)
--- NOTE | 2021-02-10 11:26 | EDM.PDOC ---
ED HPI GENERAL MEDICAL PROBLEM - General Chief Complaint: Respiratory Problem Stated Complaint: COUGH Time Seen by Provider: 02/10/21 11:03 Source of Information: Reports: Patient, RN Notes Reviewed History Limitations: Reports: No Limitations - History of Present Illness INITIAL COMMENTS - FREE TEXT/NARRATIVE: Patient is an 85-year-old female who presents to the ED for evaluation of her ongoing Covid 19 symptoms. Patient was diagnosed with Covid this last week Friday or , and did receive bamlanivimab treatment. She states that since then, her cough has worsened, and she is complaining of getting some yellow/greenish sputum up with her cough. She states it is not all the time but she does get some colored sputum up when she does get it up. She is not comp laining of any shortness of breath, nausea/vomiting, fevers or chills. She states that her chest is sore due to the coughing, and when she takes a deep breath. Patient's O2 sats at time of triage 97% on room air, and she is in no visible respiratory distress at all. She has been using some acgv-hlc-shhnotf cough medications to include Mucinex, and a cold tile that she could remember the name of. Primary care provider is Joanna Alva. Patient did not receive the COVID-19 vaccine, and she believes that she may have come in contact with someone at [facility]. She states however she was wearing her mask at the service. - Related Data Allergies Allergy/AdvReac Type Severity Reaction Status Date / Time codeine Allergy Severe Airway Verified 02/10/21 11:07 Tightness morphine Allergy Intermediate Hives, Verified 02/10/21 11:07 hypertension atorvastatin Allergy Other Verified 02/10/21 11:07 hydrocodone Allergy Other Verified 02/10/21 11:07 metoclopramide [From Reglan] Allergy Other Verified 02/10/21 11:07 ranitidine AdvReac Intermediate Tachycardia Verified 02/10/21 11:07 isosorbide AdvReac Hypotension Verified 02/10/21 11:07 Home Meds: Home Meds Aspirin 81 mg PO BID 11/11/15 [History] Calcium Carbonate [Calcium] 1,200 mg PO DAILY 07/20/19 [History] Cyanocobalamin (Vitamin B-12) [B-12] 1,000 mcg PO ASDIRECTED 07/20/19 [History] Losartan [Cozaar] 100 mg PO DAILY 07/20/19 [History] Magnesium 250 mg PO DAILY 07/20/19 [History] Pantoprazole [ProTONIX] 40 mg PO DAILY 07/20/19 [History] Potassium 99 mg PO DAILY 07/20/19 [History] Rosuvastatin [Crestor] 2.5 mg PO ASDIRECTED 07/20/19 [History] Ubidecarenone [Coenzyme Q10] 100 mg PO BID 07/20/19 [History] hydroCHLOROthiazide [Hydrochlorothiazide] 12.5 mg PO DAILY 07/20/19 [History] rOPINIRole [Requip] 1 mg PO QPM 07/20/19 [History] LORazepam [Ativan] 0.5 mg PO Q8H PRN #6 tablet 10/17/19 [Rx] Potassium Chloride [Klor-Con M20] 20 meq PO Q12H #6 tab.er 10/17/19 [Rx] traMADol [Ultram] 100 mg PO TID 10/17/19 [History] predniSONE [Prednisone] 30 mg PO DAILY 5 Days #15 tablet 05/27/20 [Rx] Brimonidine [Alphagan P 0.15% Ophth Soln] 5 ml .XX 06/20/20 [History] Cholecalciferol (Vitamin D3) [Vitamin D3] 1,000 unit PO 06/20/20 [History] Fluticasone Propionate [Flonase] 16 gm NS 06/20/20 [History] Magnesium Oxide 250 mg PO 06/20/20 [History] Ondansetron [Zofran ODT] 4 mg PO 06/20/20 [History] Pyridoxine HCl (Vitamin B6) [Vitamin B-6] 100 mg PO 06/20/20 [History] hydroCHLOROthiazide [Hydrochlorothiazide] 12.5 mg PO 06/20/20 [History] rOPINIRole [Requip] 1 mg PO 06/20/20 [History] Benzonatate 100 mg PO TID PRN #21 capsule 02/10/21 [Rx] Past Medical History Cardiovascular History: Reports: High Cholesterol, Hypertension Respiratory History: Reports: COPD, Sleep Apnea Gastrointestinal History: Reports: GERD Genitourinary History: Reports: Urinary Incontinence KILN TESTER History: Reports: Musculoskeletal History: Reports: Osteoarthritis Psychiatric History: Reports: Anxiety Oncologic (Cancer) History: Reports: Breast Other Oncologic History: right mastectomy 5 yrs ago - Infectious Disease History Infectious Disease History: Reports: Measles, Novel Coronavirus (02/07/2021) - Past Surgical History HEENT Surgical History: Reports: Cataract Surgery, Tonsillectomy GI Surgical History: Reports: Hernia, Abdominal Female Surgical History: Reports: Hysterectomy Musculoskeletal Surgical History: Reports: Knee Replacement Oncologic Surgical History: Reports: Mastectomy Social & Family History - Family History Family Medical History: No Pertinent Family History - Tobacco Use Tobacco Use Status *Q: Never Tobacco User Second Hand Smoke Exposure: No - Caffeine Use Caffeine Use: Reports: Coffee - Recreational Drug Use Recreational Drug Use: No - Living Situation & Occupation Living situation: Reports: , with Spouse Occupation: Retired ED ROS GENERAL - Review of Systems Review Of Systems: Comprehensive ROS is negative, except as noted in HPI. ED EXAM, GENERAL - Physical Exam Exam: See Below Exam Limited By: No Limitations General Appearance: Alert, WD/WN, No Apparent Distress Respiratory/Chest: No Respiratory Distress, Lungs Clear, Normal Breath Sounds, No Accessory Muscle Use, Chest Non-Tender Cardiovascular: Normal Peripheral Pulses, Regular Rate, Rhythm, No Edema Peripheral Pulses: 2+: Radial (L), Radial (R) Extremities: Normal Inspection, Normal Capillary Refill Neurological: Alert, Oriented, Normal Cognition, No Motor/Sensory Deficits Psychiatric: Normal Affect, Normal Mood Skin Exam: Warm, Dry, Intact, Normal Color, No Rash Course - Vital Signs Last Recorded V/S: Last Vital Signs Temp 97.6 F 02/10/21 11:03 Pulse 66 02/10/21 11:03 Resp 16 02/10/21 11:03 BP 148/90 H 02/10/21 11:03 Pulse Ox 99 02/10/21 11:03 - Orders/Labs/Meds Orders: Active Orders 24 hr Category Date Time Status Chest 1V Frontal [CR] Stat Exams 02/10/21 11:08 Ordered Labs: Laboratory Tests 02/10/21 Range/Units 11:42 WBC 6.53 (3.98-10.04) K/mm3 RBC 4.07 (3.98-5.22) M/mm3 Hgb 12.8 (11.2-15.7) gm/dl Hct 37.1 (34.1-44.9) % MCV 91.2 D (79.4-94.8) fl MCH 31.4 (25.6-32.2) pg MCHC 34.5 (32.2-35.5) g/dl RDW Std Deviation 38.9 (36.4-46.3) fL Plt Count 136 L D (182-369) K/mm3 MPV 8.4 L (9.4-12.3) fl Neut % (Auto) 71.3 H (34.0-71.1) % Lymph % (Auto) 16.5 L (19.3-51.7) % [place] % (Auto) 9.6 (4.7-12.5) % Eos % (Auto) 2.0 (0.7-5.8) Baso % (Auto) 0.3 (0.1-1.2) % Neut # (Auto) 4.65 (1.56-6.13) K/mm3 Lymph # (Auto) 1.08 L (1.18-3.74) K/mm3 [place] # (Auto) 0.63 H (0.24-0.36) K/mm3 Eos # (Auto) 0.13 (0.04-0.36) K/mm3 Baso # (Auto) 0.02 (0.01-0.08) K/mm3 Meds: Medications Discontinued Medications Generic Name Dose Route Start Last Admin Trade Name Freq PRN Reason Stop Dose Admin Benzonatate 100 mg 02/10/21 11:24 02/10/21 11:45 Benzonatate 100 Mg Cap PO 02/10/21 11:25 100 mg ONETIME ONE Administration - Re-Assessments/Exams Free Text/Narrative Re-Assessment/Exam: 02/10/21 11:26 Patient presents to the ER for her cough and ongoing COVID-19 symptoms. We will go ahead and do a chest x-ray as she has not had one performed during her disease course, will get a CBC, to see if there is any increase in white count. We will try [place] with the patient due to her cough. She is not having any other symptoms at this time. 02/10/21 11:56 The patient's checks x-ray has been performed, and does appear to be within normal limits. Official radiology read is pending, x-ray was reviewed by myself and Dr. Hobbs. CBC is also unremarkable for a bacterial infective process. We will go ahead and discharge patient home with conservative measures, and a prescription for Tessalon for her cough. Departure - Departure Time of Disposition: 11:58 Disposition: Home, Self-Care 01 Condition: Good Clinical Impression: COVID-19, Cough - Discharge Information *PRESCRIPTION DRUG MONITORING PROGRAM REVIEWED*: No *COPY OF PRESCRIPTION DRUG MONITORING REPORT IN PATIENT TIBURCIO: No Instructions: COVID-19 Frequently Asked Questions Referrals: Radha Alva, TELECOMMUNICATION TOWER TECHNICIAN [Primary Care Provider] - Forms: ED Department Discharge Additional Instructions: You were seen in the ER today for ongoing and/or worsening respiratory symptoms. Your chest x-ray showed no signs of pneumonia at this time. Your oxygen levels were great at 97% on room air. Please try to increase your oral fluid intake, and eat multiple small meals throughout the day, to keep yourself healthy. You need to keep yourself nourished in order to fight off this disease. You can try a liquid diet like gatorade/powerade as well to get your electrolytes. You may take 500 mg Tylenol (acetaminophen) or ibuprofen (Motrin/Advil) every hours 6 hours for pain/fever relief. Do not exceed 4000 mg Tylenol or 3200 mg ibuprofen in a 24-hour time span. However, running a fever is your body's natural response to illness, and it allows the body to develop antibodies to disease, we are recommending trying to limit the use of Tylenol as much as possible to allow your body's natural immune response. Recommend you obtain a pulse oximeter and monitor your oxygen levels at home, you should place the monitor on your finger, and sit in a calm, quiet position for a few minutes and then record the number that is on the screen. If this consistently below 90% on room air without movement, this would be cause for concern to come back to the hospital for further management of your COVID-19 disease. You were given a prescription for Tessalon Perles, this is a medication for your cough, you may take 1 tablet up to 3 times a day as needed for ongoing cough. T his [facility] on [address]. You may continue anez-mzu-shgmuhv cough/cold medications like Mucinex to help thin the mucus, or Coricidin HBP, this is a cough/cold medication that people with high blood pressure can take with less side effects. Please note that you will likely still feel not so great for the next few days, but things should get better in a few days time. Please return to the ER at any time if your symptoms should change or worsen. Sepsis Event Note (ED) - Evaluation Sepsis Screening Result: No Definite Risk - Focused Exam Vital Signs: Vital Signs Temp Pulse Resp BP Pulse Ox 02/10/21 11:03 97.6 F 66 16 148/90 H 99 - My Orders Last 24 Hours: My Active Orders 02/10/21 11:08 Chest 1V Frontal [CR] Stat - Assessment/Plan Last 24 Hours: My Active Orders 02/10/21 11:08 Chest 1V Frontal [CR] Stat
--- NOTE | 2021-02-11 11:11 | CR ---
Chest: Portable view of the chest was obtained. Comparison: Prior chest x-ray of 11/27/18. Hiatal hernia is noted. Heart size is felt to be slightly enlarged. Tortuous thoracic aorta is seen. Lungs are clear with no acute parenchymal change. Surgical clips are seen within the right axillary region. Impression: 1. Findings as noted above. 2. Nothing acute is seen. Diagnostic code #2
== END 2021-02-10 12:30 | disposition home or self-care (01) ==
LOC: JD.ED 10:55
DX: U07.1 COVID-19 (principal); E78.00 Pure hypercholesterolemia, unspecified; I10 Essential (primary) hypertension; J44.9 Chronic obstructive pulmonary disease, unspecified; K21.9 Gastro-esophageal reflux disease without esophagitis; M19.90 Unspecified osteoarthritis, unspecified site; Z88.5 Allergy status to narcotic agent; Z88.8 Allergy status to other drugs, medicaments and biological substances; Z79.82 Long term (current) use of aspirin; Z79.899 Other long term (current) drug therapy
CPT/HCPCS: 36415; 71045; 85025; 99283; A9270

== ENCOUNTER 2021-02-12 19:39 | Emergency (ER) | payer MEDICARE, OTHER ==
[2021-02-12 20:01] VITALS: BP 146/88; PULSE 73
--- NOTE | 2021-02-12 20:35 | EDM.PDOC ---
ED HPI GENERAL MEDICAL PROBLEM - General Chief Complaint: Back Pain or Injury Stated Complaint: BACK PAIN/RESTLESS/CAN'T SLEEP Time Seen by Provider: 02/12/21 20:10 Source of Information: Reports: Patient History Limitations: Reports: No Limitations - History of Present Illness INITIAL COMMENTS - FREE TEXT/NARRATIVE: Mrs. Blanca is a pleasant 85-year-old woman who, medical records indicate, had a cough productive of greenish sputum for 3 days before she was seen at the COVID clinic this past 02/07/2021. Her COVID test returned positive, and she received an infusion of bamlamivimab that same day. She was then seen in this ED 2 days ago, 02/10/2021, with a complaint at that time of worsening cough. No associated dyspnea, fever, chills, nausea, or vomiting. She reported that her chest was sore from the cough, and when she took a deep breath. She had been taking avhx-pjg-pwnndjl Mucinex, along with an rteo-phr-jldvdid cough remedy. She was found to be hemodynamically stable, afebrile, saturating 99% on room air. Her physical examination, including that of her lungs, was unremarkable. Work-up included a portable chest x-ray and a CBC. Both were essentially normal. She was treated with Tessalon Perles. She was discharged home with a prescription for Tessalon Perles and the recommendation that she stay adequately hydrated, take Tylenol or ibuprofen as needed, and purchase a pulse oximeter to monitor her oxygen saturation. The patient now returns to the ED, stating that she has been experiencing body aches, restless legs, generalized fatigue, and difficulty sleeping. She states that she has been taking tramadol 100 mg po TID, as prescribed, following with a single tablet of acetaminophen 325 mg once today, without adequate relief of her symptoms. She was hoping that we could either switch her to a stronger pain medication than tramadol, or give her some sort of sedative. The patient did not contact the office of her prescriber today. The patient has a history of anxiety, currently untreated, however, she states that she has a bottle of some sort of anti-anxiety medicine at home that she simply does not take. Checking the medical records, it appears that the patient is prescribed lorazepam 0.5 mg 1 tab po Q8 hrs prn. Here in the ED, the patient's initial BP is found to be slightly elevated at 146/88, otherwise, she is hemodynamically stable, afebrile, saturating 100% on room air. She is active in the exam room, and does not appear to be in any acute distress. The patient states that prior to 02/04/2021, she had not had a recent fever, chills, sore throat, ear pain, nasal or sinus congestion, cough, dyspnea, chest pain, palpitations, nausea, vomiting, constipation, diarrhea, abdominal pain, urinary symptoms, recent weight gain or weight loss, recent bloody bowel movements or black bowel movements, recent joint aches, headaches, or rashes. The patient's PCP is Radha Alva NP. Her Solution Design Engineer is Dr. Ricky Alcantara. She states that she already received an influenza vaccine this season. Lower Back Pain Score (Numeric/FACES): 10 - Related Data Allergies Allergy/AdvReac Type Severity Reaction Status Date / Time codeine Allergy Severe Airway Verified 02/12/21 21:29 Tightness morphine Allergy Intermediate Hives, Verified 02/12/21 21:29 hypertension atorvastatin Allergy Other Verified 02/12/21 21:29 hydrocodone Allergy Other Verified 02/12/21 21:29 metoclopramide [From Reglan] Allergy Other Verified 02/12/21 21:29 ranitidine AdvReac Intermediate Tachycardia Verified 02/12/21 21:29 isosorbide AdvReac Hypotension Verified 02/12/21 21:29 Home Meds: Home Meds Aspirin 81 mg PO DAILY 11/11/15 [History] Calcium Carbonate [Calcium] 1,200 mg PO DAILY 07/20/19 [History] Pantoprazole [ProTONIX] 40 mg PO DAILY 07/20/19 [History] Potassium 99 mg PO DAILY 07/20/19 [History] Rosuvastatin [Crestor] 5 mg PO ASDIRECTED 07/20/19 [History] Ubidecarenone [Coenzyme Q10] 100 mg PO BID 07/20/19 [History] traMADol [Ultram] 100 mg PO TID 10/17/19 [History] Brimonidine [Alphagan P 0.15% Ophth Soln] 1 drop TOP BID 06/20/20 [History] Cholecalciferol (Vitamin D3) [Vitamin D3] 1,000 unit PO WEEKLY 06/20/20 [History] Fluticasone Propionate [Flonase] 16 gm NS ASDIRECTED 06/20/20 [History] Magnesium Oxide 250 mg PO TID 06/20/20 [History] hydroCHLOROthiazide [Hydrochlorothiazide] 12.5 mg PO ASDIRECTED 06/20/20 [History] rOPINIRole [Requip] 1 mg PO BEDTIME 06/20/20 [History] Cyanocobalamin (Vitamin B-12) [Vitamin B-12] 1,000 mcg PO ASDIRECTED 02/12/21 [History] Folic Acid 1 mg PO DAILY 02/12/21 [History] Furosemide [Lasix] 20 mg PO ASDIRECTED 02/12/21 [History] Glucosam/Chond/Collagen/Hyalur [Glucosamine Chondroitin] 1 tab PO DAILY 02/12/21 [History] HCTZ/Triamterene [Maxzide 25-37.5 MG] 1 tab PO DAILY 02/12/21 [History] [place]-3/DHA/Epa/Fish Oil [[place]-3 Fish Oil 1,000 MG Sfgl] 1,000 mg PO DAILY 02/12/21 [History] Potassium Chloride [Klor-Con M20] 99 meq PO DAILY 02/12/21 [History] carvediloL [Coreg] 6.25 mg PO BID 02/12/21 [History] Past Medical History Cardiovascular History: Reports: High Cholesterol, Hypertension Respiratory History: Reports: COPD (PFT-proven, mild, untreated), Sleep Apnea (nightly CPAP 5) Gastrointestinal History: Reports: GERD Genitourinary History: Reports: Urinary Incontinence (stress incontinence) Musculoskeletal History: Reports: Osteoarthritis Neurological History: Reports: Other (See Below) (Restless leg syndrome) Psychiatric History: Reports: Anxiety (untreated) Oncologic (Cancer) History: Reports: Breast (right, s/p mastectomy and CTx) - Infectious Disease History Infectious Disease History: Reports: Measles, Novel Coronavirus (dx'd 02/07/2021) - Past Surgical History HEENT Surgical History: Reports: Cataract Surgery (bilateral), Tonsillectomy Cardiovascular Surgical History: Reports: Other (See Below) (Coronary angiogram April 2020 -> mild disease) GI Surgical History: Reports: Hernia, Abdominal (x 6) Female Surgical History: Reports: Hysterectomy (complete) Musculoskeletal Surgical History: Reports: Knee Replacement (bilateral) Oncologic Surgical History: Reports: Mastectomy (right) Social & Family History - Tobacco Use Tobacco Use Status *Q: Never Tobacco User - Caffeine Use Caffeine Use: Reports: Coffee, Tea - Alcohol Use Alcohol Use History: No - Recreational Drug Use Recreational Drug Use: No - Living Situation & Occupation Living situation: Reports: , with Spouse Occupation: Retired ED ROS GENERAL - Review of Systems Review Of Systems: Comprehensive ROS is negative, except as noted in HPI. ED EXAM, GENERAL - Physical Exam Exam: See Below Exam Limited By: No Limitations General Appearance: Alert, WD/WN, No Apparent Distress Eye Exam: Bilateral Eye: EOMI, Normal Inspection Ears: Normal External Exam, Hearing Grossly Normal Nose: Normal Inspection Throat/Mouth: Normal Inspection, Normal Lips, Normal Voice, No Airway Compromise Head: Atraumatic, Normocephalic Neck: Normal Inspection, Full Range of Motion Respiratory/Chest: No Respiratory Distress, Lungs Clear, Normal Breath Sounds, No Accessory Muscle Use Cardiovascular: Normal Peripheral Pulses, Regular Rate, Rhythm, No Gallop, No JVD, No Murmur, No Rub Peripheral Pulses: 3+: Radial (L), Radial (R) GI/Abdominal: Normal Bowel Sounds, Soft, Non-Tender, No Organomegaly, No Distention, No Abnormal Bruit, No Mass Back Exam: Normal Inspection, Full Range of Motion, NT Extremities: Normal Inspection, Normal Range of Motion, Normal Capillary Refill Neurological: Alert, Oriented, Normal Cognition, No Motor/Sensory Deficits Psychiatric: Normal Affect Skin Exam: Warm, Dry, Intact, Normal Color, No Rash Course - Vital Signs Last Recorded V/S: Last Vital Signs Temp 35.4 C L 02/12/21 19:59 Pulse 73 02/12/21 19:59 Resp 20 02/12/21 19:59 BP 146/88 H 02/12/21 19:59 Pulse Ox 100 02/12/21 19:59 - Re-Assessments/Exams Free Text/Narrative Re-Assessment/Exam: 02/12/21 20:34 As above, after 3 days of a cough, the patient was diagnosed with COVID-19 on 02/07/2021, receiving an infusion of bamlamivimab that same day. Since then, she has developed generalized body aches, restless legs, fatigue, and difficulty sleeping. She has been taking her usual tramadol 100 mg TID, and took 1 tablet of acetaminophen 325 mg today, without significant improvement of her symptoms, therefore came to the ED hoping that we would increase her pain medication or give her some sort of sedative. I pointed out to the patient that she may increase her tramadol to a maximum of 100 mg Q4 hrs, and also that she can start taking her previously prescribed lorazepam 0.5 mg Q8 hrs prn. I advised that she go up on both of these gradually. Departure - Departure Time of Disposition: 20:39 Disposition: Home, Self-Care 01 Condition: Good Clinical Impression: COVID-19 - Discharge Information *PRESCRIPTION DRUG MONITORING PROGRAM REVIEWED*: Not Applicable *COPY OF PRESCRIPTION DRUG MONITORING REPORT IN PATIENT TIBURCIO: Not Applicable Instructions: COVID-19 Referrals: Radha Alva NP [Primary Care Provider] - Ricky Alcantara MD [Ordering Only Provider] - Forms: ED Department Discharge Additional Instructions: You were seen in the emergency room for generalized body aches, restless legs, fatigue, and difficulty sleeping, in the setting of being diagnosed with COVID- 19 on 02/07/2021. You are currently taking tramadol 50 mg, 2 tablets (100 mg) every 8 hours, but you may increase this to a MAXIMUM of 100 mg every 4 hours. We recommend that you increase your current dosage gradually, to see how it makes you feel. Additionally, you currently have a prescription for lorazepam (Ativan) 0.5 mg up to every 8 hours, as needed for anxiety. We recommend that you begin taking this medication, and increase the dose slowly, to see how it makes you feel. We recommend that you contact the office of your PCP, Radha Alva NP, in the morning, to let her know how you are feeling, and to see if any additional changes in your medications are necessary. As discussed, it is very important that you remain strictly quarantined for 10 days from the time of your diagnosis = through 02/17/2021, after which time you should be re-tested for the SARS-CoV-2 virus, and not resume interacting with people until and unless that test returns negative. If any other problems, please do not hesitate to return to the ER. Sepsis Event Note (ED) - Evaluation Sepsis Screening Result: No Definite Risk - Focused Exam Vital Signs: Vital Signs Temp Pulse Resp BP Pulse Ox 02/12/21 19:59 35.4 C L 73 20 146/88 H 100
== END 2021-02-12 21:00 | disposition home or self-care (01) ==
LOC: JD.ED 19:39
DX: U07.1 COVID-19 (principal); E78.00 Pure hypercholesterolemia, unspecified; I10 Essential (primary) hypertension; J44.9 Chronic obstructive pulmonary disease, unspecified; K21.9 Gastro-esophageal reflux disease without esophagitis; M19.90 Unspecified osteoarthritis, unspecified site; Z88.5 Allergy status to narcotic agent; Z88.1 Allergy status to other antibiotic agents; Z88.8 Allergy status to other drugs, medicaments and biological substances; Z79.82 Long term (current) use of aspirin; Z79.899 Other long term (current) drug therapy
CPT/HCPCS: 99283

== ENCOUNTER 2022-07-04 21:01 | Emergency (ER) | payer MEDICARE, OTHER ==
[2022-07-04 21:43] VITALS: BP 155/90; PULSE 74
[2022-07-05] MEDS ORDERED: Sodium Chloride 0.9% 1,000 ML IV SCH (01:00)
[2022-07-05] MEDS ORDERED: Iopamidol 755 Mg/ML 100 ML Bottle IVPUSH ONE ×2 (03:15→03:17)
[2022-07-05] MEDS ORDERED: Sodium Chloride 0.9% 100 ML IV SCH ×2 (03:15→03:30)
[2022-07-05] MEDS ORDERED: Sodium Chloride 0.9% 10 ML Syringe FLUSH ONE ×2 (03:15→03:17)
[2022-07-05] MEDS ORDERED: Acetaminophen 325 MG Tab PO ONE (04:07)
== END 2022-07-05 05:04 | disposition home or self-care (01) ==
LOC: JD.ED 21:01
DX: R61 Generalized hyperhidrosis (principal); R91.1 Solitary pulmonary nodule; E78.00 Pure hypercholesterolemia, unspecified; I10 Essential (primary) hypertension; J44.9 Chronic obstructive pulmonary disease, unspecified; M19.90 Unspecified osteoarthritis, unspecified site; Z86.16 Personal history of COVID-19; Z88.5 Allergy status to narcotic agent; Z88.8 Allergy status to other drugs, medicaments and biological substances; Z79.82 Long term (current) use of aspirin; Z79.899 Other long term (current) drug therapy; Z20.822 Contact with and (suspected) exposure to COVID-19
CPT/HCPCS: 36415; 71046; 71275; 80053; 81001; 83735; 84484; 85025; 85379; 87086; 93005; 96360; 96361; 99284; A9270; J3490; J7030; Q9967; U0002; 93010

== ENCOUNTER 2022-08-22 00:37 | Emergency (ER) | payer MEDICARE, OTHER ==
[2022-08-22 01:12] VITALS: BP 193/87; PULSE 69
== END 2022-08-22 02:01 | disposition home or self-care (01) ==
LOC: JD.ED 00:37
DX: I10 Essential (primary) hypertension (principal); J44.9 Chronic obstructive pulmonary disease, unspecified; K21.9 Gastro-esophageal reflux disease without esophagitis; Z79.899 Other long term (current) drug therapy; Z88.8 Allergy status to other drugs, medicaments and biological substances
CPT/HCPCS: 99283

== ENCOUNTER 2023-09-23 21:24 | Emergency (ER) | payer MEDICARE, OTHER ==
[2023-09-23 22:24] LABS: BASOPHILS PERCENT AUTO 0.4 % (0.0-1.0); EOSINOPHILS ABSOLUTE AUTO 0.1 K/mm3 (0.0-0.4); EOSINOPHILS PERCENT AUTO 0.7 % (0.0-6.0); HEMATOCRIT 38.8 % (37.0-47.0); HEMOGLOBIN 13.5 gm/dl (12.0-16.0); IMMATURE GRAN ABSOLUTE AUTO 0.04 K/mm3 (0.00-0.05); IMMATURE GRAN PERCENT AUTO 0.4 % (0.0-0.4); LYMPHOCYTES ABSOLUTE AUTO 1.4 K/mm3 (1.0-4.8); LYMPHOCYTES PERCENT AUTO 15.3 % (24.0-44.0); MEAN CORPUSCULAR HEMOGLOBIN 32.9 pg (28.0-32.0); MEAN CORPUSCULAR HGB CONC 34.8 g/dl (32.0-36.0); MEAN CORPUSCULAR VOLUME 94.6 fl (83.0-99.0); MEAN PLATELET VOLUME 8.5 fl (9.4-12.3); MONOCYTES ABSOLUTE AUTO 0.7 K/mm3 (0.0-0.8); MONOCYTES PERCENT AUTO 7.3 % (0.0-8.0); NEUTROPHILS ABSOLUTE AUTO 7.1 K/mm3 (1.8-7.7); NEUTROPHILS PERCENT AUTO 75.9 % (41.0-71.0); PLATELET COUNT,PLT 166 K/mm3 (150-400); WHITE BLOOD CELL COUNT,WBC 9.41 K/mm3 (3.9-11.3)
[2023-09-23 22:29] LABS: CORONAVIRUS COVID-19 NAA NEGATIVE (NEGATIVE); INFLUENZA A NAA NEGATIVE (NEGATIVE); RESPIRATORY SYNCYTIAL VIR NAA NEGATIVE (NEGATIVE)
[2023-09-23 22:42] LABS: A/G RATIO 1.3 (1-2); ALBUMIN 3.6 g/dl (3.4-5.0); ANION GAP 11.6 (5-15); BILIRUBIN TOTAL 0.4 mg/dL (0.2-1.0); BUN/CREATININE RATIO 17.9 (14-18); CREATININE 1.4 mg/dL (0.55-1.02); EST CRCL DRUG DOSING (CG) 21.97 mL/min; POTASSIUM,K 3.6 mEq/L (3.5-5.1); PROTEIN TOTAL,TP 6.4 g/dl (6.4-8.2)
[2023-09-23 23:07] LABS: APPEARANCE,URINE CLEAR (Clear); BILIRUBIN,URINE NEGATIVE (Negative); COLOR,URINE YELLOW (Yellow); GLUCOSE,URINE NEGATIVE (Negative); KETONES,URINE NEGATIVE (Negative); LEUKOCYTE ESTERASE,URINE 1+ (Negative); NITRITE,URINE NEGATIVE (Negative); OCCULT BLOOD,URINE NEGATIVE (Negative); PROTEIN,URINE NEGATIVE (Negative); UROBILINOGEN,URINE 0.2 (0.2-1.0)
[2023-09-23 23:29] LABS: BACTERIA,URINE FEW /hpf (FEW); MUCUS,URINE NOT SEEN /hpf (FEW); RBC,URINE 0-5 /hpf (0-5); SQUAMOUS EPITHELIAL CELLS,UR 0-5 /hpf (0-5)
[2023-09-24 00:30] VITALS: BP 139/87; PULSE 83
== END 2023-09-24 00:25 | disposition home or self-care (01) ==
LOC: JD.ED 21:24
DX: R11.0 Nausea (principal); I10 Essential (primary) hypertension; E78.00 Pure hypercholesterolemia, unspecified; K21.9 Gastro-esophageal reflux disease without esophagitis; J44.9 Chronic obstructive pulmonary disease, unspecified; Z86.16 Personal history of COVID-19; Z90.710 Acquired absence of both cervix and uterus; Z79.82 Long term (current) use of aspirin; Z79.899 Other long term (current) drug therapy; Z88.5 Allergy status to narcotic agent; Z88.8 Allergy status to other drugs, medicaments and biological substances; Z88.1 Allergy status to other antibiotic agents; Z20.822 Contact with and (suspected) exposure to COVID-19
CPT/HCPCS: 0241U; 36415; 80053; 81001; 85025; 87086; 99282; 99284

== ENCOUNTER 2023-11-02 17:18 | Emergency (ER) | payer MEDICARE, OTHER ==
[2023-11-02] MEDS ORDERED: Sodium Chloride 0.9% 10 ML Syringe FLUSH PRN (18:07)
[2023-11-02 18:32] LABS: BASOPHILS ABSOLUTE AUTO 0.1 K/mm3 (0.0-0.2); BASOPHILS PERCENT AUTO 0.8 % (0.0-1.0); EOSINOPHILS ABSOLUTE AUTO 0.1 K/mm3 (0.0-0.4); EOSINOPHILS PERCENT AUTO 1.1 % (0.0-6.0); HEMATOCRIT 36.5 % (37.0-47.0); HEMOGLOBIN 12.8 gm/dl (12.0-16.0); IMMATURE GRAN ABSOLUTE AUTO 0.04 K/mm3 (0.00-0.05); IMMATURE GRAN PERCENT AUTO 0.6 % (0.0-0.4); LYMPHOCYTES ABSOLUTE AUTO 1.9 K/mm3 (1.0-4.8); LYMPHOCYTES PERCENT AUTO 29.3 % (24.0-44.0); MEAN CORPUSCULAR HEMOGLOBIN 33.5 pg (28.0-32.0); MEAN CORPUSCULAR HGB CONC 35.1 g/dl (32.0-36.0); MEAN CORPUSCULAR VOLUME 95.5 fl (83.0-99.0); MEAN PLATELET VOLUME 8.2 fl (9.4-12.3); MONOCYTES ABSOLUTE AUTO 0.6 K/mm3 (0.0-0.8); MONOCYTES PERCENT AUTO 8.7 % (0.0-8.0); NEUTROPHILS ABSOLUTE AUTO 3.9 K/mm3 (1.8-7.7); NEUTROPHILS PERCENT AUTO 59.5 % (41.0-71.0); PLATELET COUNT,PLT 172 K/mm3 (150-400); RED BLOOD CELL COUNT 3.82 M/mm3 (4.10-5.30); WHITE BLOOD CELL COUNT,WBC 6.56 K/mm3 (3.9-11.3)
[2023-11-02 19:00] LABS: A/G RATIO 1.2 (1-2); ALBUMIN 3.7 g/dl (3.4-5.0); ANION GAP 8.5 (5-15); BILIRUBIN TOTAL 0.3 mg/dL (0.2-1.0); CALCIUM 9.3 mg/dL (8.5-10.1); EST CRCL DRUG DOSING (CG) 30.76 mL/min; POTASSIUM,K 3.5 mEq/L (3.5-5.1); PROTEIN TOTAL,TP 6.8 g/dl (6.4-8.2)
[2023-11-02 22:06] VITALS: BP 169/98; PULSE 82
== END 2023-11-02 21:43 | disposition home or self-care (01) ==
LOC: JD.ED 17:18
DX: M79.651 Pain in right thigh (principal); I10 Essential (primary) hypertension; E78.00 Pure hypercholesterolemia, unspecified; J44.9 Chronic obstructive pulmonary disease, unspecified; Z86.16 Personal history of COVID-19; Z90.710 Acquired absence of both cervix and uterus; Z79.82 Long term (current) use of aspirin; Z88.5 Allergy status to narcotic agent; Z88.6 Allergy status to analgesic agent; Z88.8 Allergy status to other drugs, medicaments and biological substances; Z79.899 Other long term (current) drug therapy
CPT/HCPCS: 36415; 71045; 71045-26; 73552-26-RT; 73552-RT; 80053; 83880; 84484; 85025; 93005; 93971-26-RT; 93971-RT; 99284

== ENCOUNTER 2023-12-05 23:50 | Emergency (ER) | payer MEDICARE, OTHER ==
[2023-12-06 00:09] VITALS: BP 143/69; PULSE 74
[2023-12-06] MEDS: LORazepam 1 MG Tab PO ONE (01:05)
== END 2023-12-06 01:15 | disposition home or self-care (01) ==
LOC: JD.ED 23:50
DX: F11.23 Opioid dependence with withdrawal (principal); I10 Essential (primary) hypertension; J44.9 Chronic obstructive pulmonary disease, unspecified; E78.00 Pure hypercholesterolemia, unspecified; K21.9 Gastro-esophageal reflux disease without esophagitis; Z86.16 Personal history of COVID-19; Z90.710 Acquired absence of both cervix and uterus; Z79.899 Other long term (current) drug therapy; Z79.82 Long term (current) use of aspirin; Z88.5 Allergy status to narcotic agent; Z88.6 Allergy status to analgesic agent; Z88.8 Allergy status to other drugs, medicaments and biological substances
CPT/HCPCS: 99283; A9270

== ENCOUNTER 2024-03-22 21:20 | Emergency (ER) | payer OTHER, MEDICARE ==
[2024-03-22 22:31] VITALS: BP 166/101; PULSE 70
== END 2024-03-23 00:04 | disposition home or self-care (01) ==
LOC: JD.ED 21:20
DX: R19.7 Diarrhea, unspecified (principal); E78.00 Pure hypercholesterolemia, unspecified; I10 Essential (primary) hypertension; J44.9 Chronic obstructive pulmonary disease, unspecified; K21.9 Gastro-esophageal reflux disease without esophagitis; Z88.5 Allergy status to narcotic agent; Z88.8 Allergy status to other drugs, medicaments and biological substances; Z79.82 Long term (current) use of aspirin; Z79.899 Other long term (current) drug therapy; Z86.16 Personal history of COVID-19
CPT/HCPCS: 99282; 99283

== ENCOUNTER 2024-04-10 14:36 | Emergency (ER) | payer MEDICARE, OTHER ==
[2024-04-10 18:08] VITALS: BP 166/77; PULSE 68
== END 2024-04-10 17:05 | disposition home or self-care (01) ==
LOC: JD.ED 14:36
DX: Z04.3 Encounter for examination and observation following other accident (principal); I10 Essential (primary) hypertension; E78.00 Pure hypercholesterolemia, unspecified; J44.9 Chronic obstructive pulmonary disease, unspecified; K21.9 Gastro-esophageal reflux disease without esophagitis; Z88.5 Allergy status to narcotic agent; Z88.6 Allergy status to analgesic agent; Z88.8 Allergy status to other drugs, medicaments and biological substances; Z79.82 Long term (current) use of aspirin; Z79.899 Other long term (current) drug therapy; Z90.710 Acquired absence of both cervix and uterus; W01.0XXA Fall on same level from slipping, tripping and stumbling without subsequent striking against object, initial encounter
CPT/HCPCS: 70450; 70450-26; 99281; 99283

== ENCOUNTER 2024-06-18 23:01 | Emergency (ER) | payer MEDICARE, OTHER ==
[2024-06-18 23:16] VITALS: BP 165/82; PULSE 69
[2024-06-19 00:17] LABS: BASOPHILS ABSOLUTE AUTO 0.1 K/mm3 (0.0-0.2); BASOPHILS PERCENT AUTO 0.7 % (0.0-1.0); EOSINOPHILS ABSOLUTE AUTO 0.1 K/mm3 (0.0-0.4); EOSINOPHILS PERCENT AUTO 1.8 % (0.0-6.0); HEMATOCRIT 36.2 % (37.0-47.0); HEMOGLOBIN 12.7 gm/dl (12.0-16.0); IMMATURE GRAN ABSOLUTE AUTO 0.02 K/mm3 (0.00-0.05); IMMATURE GRAN PERCENT AUTO 0.3 % (0.0-0.4); LYMPHOCYTES ABSOLUTE AUTO 1.9 K/mm3 (1.0-4.8); LYMPHOCYTES PERCENT AUTO 25.5 % (24.0-44.0); MEAN CORPUSCULAR HEMOGLOBIN 32.6 pg (28.0-32.0); MEAN CORPUSCULAR HGB CONC 35.1 g/dl (32.0-36.0); MEAN CORPUSCULAR VOLUME 93.1 fl (83.0-99.0); MEAN PLATELET VOLUME 9.1 fl (9.4-12.3); MONOCYTES ABSOLUTE AUTO 0.6 K/mm3 (0.0-0.8); MONOCYTES PERCENT AUTO 8.5 % (0.0-8.0); NEUTROPHILS ABSOLUTE AUTO 4.6 K/mm3 (1.8-7.7); NEUTROPHILS PERCENT AUTO 63.2 % (41.0-71.0); PLATELET COUNT,PLT 175 K/mm3 (150-400); RED BLOOD CELL COUNT 3.89 M/mm3 (4.10-5.30); WHITE BLOOD CELL COUNT,WBC 7.32 K/mm3 (3.9-11.3)
[2024-06-19 00:39] LABS: A/G RATIO 1.3 (1-2); ALBUMIN 3.6 g/dl (3.4-5.0); ANION GAP 11.6 (5-15); BILIRUBIN TOTAL 0.3 mg/dL (0.2-1.0); BUN/CREATININE RATIO 25.5 (14-18); CALCIUM 9.5 mg/dL (8.5-10.1); CREATININE 1.1 mg/dL (0.55-1.02); EST CRCL DRUG DOSING (CG) 27.42 mL/min; POTASSIUM,K 3.6 mEq/L (3.5-5.1); PROTEIN TOTAL,TP 6.3 g/dl (6.4-8.2)
[2024-06-19 01:26] LABS: APPEARANCE,URINE CLEAR (Clear); BILIRUBIN,URINE NEGATIVE (Negative); COLOR,URINE YELLOW (Yellow); GLUCOSE,URINE NEGATIVE (Negative); KETONES,URINE NEGATIVE (Negative); LEUKOCYTE ESTERASE,URINE 3+ (Negative); NITRITE,URINE NEGATIVE (Negative); OCCULT BLOOD,URINE TRACE-INTACT (Negative); PROTEIN,URINE TRACE (Negative); UROBILINOGEN,URINE 0.2 (0.2-1.0)
[2024-06-19 01:34] LABS: RBC,URINE 0-5 /hpf (0-5)
[2024-06-19 01:35] LABS: BACTERIA,URINE MODERATE /hpf (FEW); MUCUS,URINE NOT SEEN /hpf (FEW); SQUAMOUS EPITHELIAL CELLS,UR 0-5 /hpf (0-5); WBC,URINE >100 /hpf (0-5)
== END 2024-06-19 03:10 | disposition home or self-care (01) ==
LOC: JD.ED 23:01
DX: I47.10 Supraventricular tachycardia, unspecified (principal); I10 Essential (primary) hypertension; E78.00 Pure hypercholesterolemia, unspecified; J44.9 Chronic obstructive pulmonary disease, unspecified; M19.90 Unspecified osteoarthritis, unspecified site; K21.9 Gastro-esophageal reflux disease without esophagitis; Z90.710 Acquired absence of both cervix and uterus; Z79.899 Other long term (current) drug therapy; Z79.82 Long term (current) use of aspirin; Z88.8 Allergy status to other drugs, medicaments and biological substances; Z88.5 Allergy status to narcotic agent
CPT/HCPCS: 36415; 71045; 71045-26; 80053; 81001; 84484; 85025; 87086; 87088; 87186; 93005; 93010; 99283; 99285

== ENCOUNTER 2024-07-26 13:57 | Emergency (ER) | payer MEDICARE, OTHER ==
[2024-07-26 14:39] LABS: BASOPHILS PERCENT AUTO 0.4 % (0.0-1.0); EOSINOPHILS ABSOLUTE AUTO 0.1 K/mm3 (0.0-0.4); EOSINOPHILS PERCENT AUTO 1.5 % (0.0-6.0); HEMATOCRIT 37.3 % (37.0-47.0); IMMATURE GRAN ABSOLUTE AUTO 0.04 K/mm3 (0.00-0.05); IMMATURE GRAN PERCENT AUTO 0.5 % (0.0-0.4); LYMPHOCYTES ABSOLUTE AUTO 1.7 K/mm3 (1.0-4.8); LYMPHOCYTES PERCENT AUTO 20.9 % (24.0-44.0); MEAN CORPUSCULAR HEMOGLOBIN 32.9 pg (28.0-32.0); MEAN CORPUSCULAR HGB CONC 34.9 g/dl (32.0-36.0); MEAN CORPUSCULAR VOLUME 94.4 fl (83.0-99.0); MEAN PLATELET VOLUME 8.8 fl (9.4-12.3); MONOCYTES ABSOLUTE AUTO 0.6 K/mm3 (0.0-0.8); MONOCYTES PERCENT AUTO 7.2 % (0.0-8.0); NEUTROPHILS ABSOLUTE AUTO 5.5 K/mm3 (1.8-7.7); NEUTROPHILS PERCENT AUTO 69.5 % (41.0-71.0); PLATELET COUNT,PLT 158 K/mm3 (150-400); RED BLOOD CELL COUNT 3.95 M/mm3 (4.10-5.30); WHITE BLOOD CELL COUNT,WBC 7.91 K/mm3 (3.9-11.3)
[2024-07-26 14:54] LABS: A/G RATIO 1.3 (1-2); ALBUMIN 3.4 g/dl (3.4-5.0); ANION GAP 12.3 (5-15); BILIRUBIN TOTAL 0.4 mg/dL (0.2-1.0); BUN/CREATININE RATIO 24.3 (14-18); CALCIUM 9.1 mg/dL (8.5-10.1); CREATININE 1.4 mg/dL (0.55-1.02); EST CRCL DRUG DOSING (CG) 21.55 mL/min; POTASSIUM,K 3.3 mEq/L (3.5-5.1); PROTEIN TOTAL,TP 6.1 g/dl (6.4-8.2)
[2024-07-26] MEDS: Potassium Chloride 20 MEQ Tab.ER PO ONE (17:34)
[2024-07-26 17:40] VITALS: BP 128/74; PULSE 65
== END 2024-07-26 17:40 | disposition home or self-care (01) ==
LOC: JD.ED 13:57
DX: R07.89 Other chest pain (principal); E78.00 Pure hypercholesterolemia, unspecified; I10 Essential (primary) hypertension; J44.9 Chronic obstructive pulmonary disease, unspecified; K21.9 Gastro-esophageal reflux disease without esophagitis; M19.90 Unspecified osteoarthritis, unspecified site; Z90.710 Acquired absence of both cervix and uterus; Z79.84 Long term (current) use of oral hypoglycemic drugs; Z79.899 Other long term (current) drug therapy; Z88.8 Allergy status to other drugs, medicaments and biological substances; Z88.5 Allergy status to narcotic agent
CPT/HCPCS: 36415; 71046; 80053; 83880; 84484; 85025; 93005; 99285; A9270; 93010; 99283

== ENCOUNTER 2024-08-27 18:37 | Emergency (ER) | payer MEDICARE, OTHER ==
[2024-08-27 19:11] VITALS: BP 130/96; PULSE 71
[2024-08-27] MEDS ORDERED: Sodium Chloride 0.9% 10 ML Syringe FLUSH PRN (19:46)
[2024-08-27 20:02] LABS: BASOPHILS PERCENT AUTO 0.6 % (0.0-1.0); EOSINOPHILS ABSOLUTE AUTO 0.1 K/mm3 (0.0-0.4); EOSINOPHILS PERCENT AUTO 1.5 % (0.0-6.0); HEMATOCRIT 36.3 % (37.0-47.0); HEMOGLOBIN 13.1 gm/dl (12.0-16.0); IMMATURE GRAN ABSOLUTE AUTO 0.06 K/mm3 (0.00-0.05); IMMATURE GRAN PERCENT AUTO 0.8 % (0.0-0.4); LYMPHOCYTES PERCENT AUTO 27.9 % (24.0-44.0); MEAN CORPUSCULAR HEMOGLOBIN 33.7 pg (28.0-32.0); MEAN CORPUSCULAR HGB CONC 36.1 g/dl (32.0-36.0); MEAN CORPUSCULAR VOLUME 93.3 fl (83.0-99.0); MEAN PLATELET VOLUME 8.5 fl (9.4-12.3); MONOCYTES ABSOLUTE AUTO 0.7 K/mm3 (0.0-0.8); MONOCYTES PERCENT AUTO 9.4 % (0.0-8.0); NEUTROPHILS ABSOLUTE AUTO 4.4 K/mm3 (1.8-7.7); NEUTROPHILS PERCENT AUTO 59.8 % (41.0-71.0); PLATELET COUNT,PLT 190 K/mm3 (150-400); RED BLOOD CELL COUNT 3.89 M/mm3 (4.10-5.30); WHITE BLOOD CELL COUNT,WBC 7.27 K/mm3 (3.9-11.3)
[2024-08-27 20:28] LABS: A/G RATIO 1.3 (1-2); ALBUMIN 3.7 g/dl (3.4-5.0); ANION GAP 10.5 (5-15); BILIRUBIN TOTAL 0.4 mg/dL (0.2-1.0); BUN/CREATININE RATIO 19.1 (14-18); CALCIUM 8.7 mg/dL (8.5-10.1); CREATININE 1.1 mg/dL (0.55-1.02); EST CRCL DRUG DOSING (CG) 27.42 mL/min; POTASSIUM,K 3.5 mEq/L (3.5-5.1); PROTEIN TOTAL,TP 6.6 g/dl (6.4-8.2); TSH 3.496 uIU/mL (0.358-3.74)
[2024-08-27 20:47] LABS: CORONAVIRUS COVID-19 NAA NEGATIVE (NEGATIVE); INFLUENZA A NAA NEGATIVE (NEGATIVE); RESPIRATORY SYNCYTIAL VIR NAA NEGATIVE (NEGATIVE)
[2024-08-27] MEDS: Sodium Chloride 0.9% 500 ML IV ONE (21:57)
[2024-08-27] MEDS: Sodium Chloride 1 GM Tab PO ONE (23:20)
== END 2024-08-27 23:48 | disposition home or self-care (01) ==
LOC: JD.ED 18:37
DX: E87.1 Hypo-osmolality and hyponatremia (principal); I10 Essential (primary) hypertension; J44.9 Chronic obstructive pulmonary disease, unspecified; K21.9 Gastro-esophageal reflux disease without esophagitis; E78.00 Pure hypercholesterolemia, unspecified; Z79.82 Long term (current) use of aspirin; Z79.899 Other long term (current) drug therapy; Z88.5 Allergy status to narcotic agent; Z88.8 Allergy status to other drugs, medicaments and biological substances; Z86.69 Personal history of other diseases of the nervous system and sense organs
CPT/HCPCS: 0241U; 36415; 70450; 71045; 80053; 83735; 84443; 85025; 93005; 99284; A9270; J7030; 93010; 99282

== ENCOUNTER 2025-03-18 19:54 | Emergency (ER) | payer MEDICARE, OTHER ==
[2025-03-18 21:01] LABS: BASOPHILS ABSOLUTE AUTO 0.1 K/mm3 (0.0-0.2); BASOPHILS PERCENT AUTO 0.6 % (0.0-1.0); EOSINOPHILS ABSOLUTE AUTO 0.1 K/mm3 (0.0-0.4); EOSINOPHILS PERCENT AUTO 1.4 % (0.0-6.0); HEMATOCRIT 36.7 % (37.0-47.0); HEMOGLOBIN 12.5 gm/dl (12.0-16.0); IMMATURE GRAN ABSOLUTE AUTO 0.04 K/mm3 (0.00-0.05); IMMATURE GRAN PERCENT AUTO 0.4 % (0.0-0.4); LYMPHOCYTES ABSOLUTE AUTO 1.4 K/mm3 (1.0-4.8); LYMPHOCYTES PERCENT AUTO 15.3 % (24.0-44.0); MEAN CORPUSCULAR HEMOGLOBIN 32.9 pg (28.0-32.0); MEAN CORPUSCULAR HGB CONC 34.1 g/dl (32.0-36.0); MEAN CORPUSCULAR VOLUME 96.6 fl (83.0-99.0); MEAN PLATELET VOLUME 9.1 fl (9.4-12.3); MONOCYTES ABSOLUTE AUTO 0.7 K/mm3 (0.0-0.8); MONOCYTES PERCENT AUTO 7.8 % (0.0-8.0); NEUTROPHILS ABSOLUTE AUTO 6.7 K/mm3 (1.8-7.7); NEUTROPHILS PERCENT AUTO 74.5 % (41.0-71.0); PLATELET COUNT,PLT 164 K/mm3 (150-400)
[2025-03-18 21:25] LABS: APPEARANCE,URINE CLEAR (Clear); BILIRUBIN,URINE NEGATIVE (Negative); COLOR,URINE LIGHT YELLOW (Yellow); GLUCOSE,URINE NEGATIVE (Negative); KETONES,URINE NEGATIVE (Negative); LEUKOCYTE ESTERASE,URINE 1+ (Negative); NITRITE,URINE NEGATIVE (Negative); OCCULT BLOOD,URINE NEGATIVE (Negative); PROTEIN,URINE NEGATIVE (Negative); UROBILINOGEN,URINE 0.2 (0.2-1.0)
[2025-03-18 21:33] LABS: A/G RATIO 1.4 (1-2); ALBUMIN 3.7 g/dl (3.4-5.0); ANION GAP 12.5 (5-15); BILIRUBIN TOTAL 0.5 mg/dL (0.2-1.0); CALCIUM 8.9 mg/dL (8.5-10.1); CREATININE 1.4 mg/dL (0.55-1.02); EST CRCL DRUG DOSING (CG) 20.56 mL/min; PHOSPHORUS 3.6 mg/dL (2.6-4.7); POTASSIUM,K 4.5 mEq/L (3.5-5.1); PROTEIN TOTAL,TP 6.3 g/dl (6.4-8.2); TSH 4.07 uIU/mL (0.358-3.74)
[2025-03-18 21:36] LABS: BACTERIA,URINE FEW /hpf (FEW); MUCUS,URINE FEW /hpf (FEW); RBC,URINE 0-5 /hpf (0-5); SQUAMOUS EPITHELIAL CELLS,UR 0-5 /hpf (0-5)
[2025-03-18 21:57] LABS: T4 FREE 0.95 ng/dL (0.76-1.46)
[2025-03-18 23:30] VITALS: BP 121/59; PULSE 75
== END 2025-03-18 23:29 | disposition home or self-care (01) ==
LOC: JD.ED 19:54
DX: R25.9 Unspecified abnormal involuntary movements (principal); R79.89 Other specified abnormal findings of blood chemistry; R82.90 Unspecified abnormal findings in urine; I10 Essential (primary) hypertension; E78.00 Pure hypercholesterolemia, unspecified; J44.9 Chronic obstructive pulmonary disease, unspecified; K21.9 Gastro-esophageal reflux disease without esophagitis; M19.90 Unspecified osteoarthritis, unspecified site; Z88.5 Allergy status to narcotic agent; Z88.8 Allergy status to other drugs, medicaments and biological substances; Z79.82 Long term (current) use of aspirin; Z79.899 Other long term (current) drug therapy; Z86.16 Personal history of COVID-19; Z90.710 Acquired absence of both cervix and uterus
CPT/HCPCS: 36415; 70450; 70450-26; 80053; 81001; 83735; 84100; 84439; 84443; 85025; 87086; 93005; 93010; 99284